=== PATIENT | female | born 1990 | race Two or more races ===

== ENCOUNTER 2019-01-25 14:05 | Inpatient (IN) | payer OTHER ==
[~2019-01-25] VITALS: Ht 157.5 cm; Wt 43.1 kg
[2019-01-25] MEDS ORDERED: Magnesium 1GM/D5W 100ML PREMIX 200 ML IV ONE ×2 (14:17→14:21)
--- NOTE | 2019-01-25 14:18 | NUR ---
DR CAMERON AT BEDSIDE FOR EVAL.
[2019-01-25] MEDS ORDERED: ALBUTEROL FS 2.5 MG/3 ML VIAL.NEB ONE (14:20)
[2019-01-25] MEDS ORDERED: IPRATROPIUM NEB FS 0.5 MG/2.5 ML AMPUL.NEB ONE (14:20)
[2019-01-25] MEDS ORDERED: TERBUTALINE SULFATE 1 MG/ML VIAL ONE (14:21)
--- NOTE | 2019-01-25 14:25 | NUR ---
RT AT BEDSIDE FOR EVAL.
[2019-01-25] MEDS ORDERED: DEXAMETHASONE SOD PHOSPHATE 10 MG/ML VIAL ONE (14:29)
[2019-01-25] MEDS ORDERED: IPRATROPIUM NEB FS 0.5 MG/2.5 ML AMPUL.NEB NEB ONE (14:30)
[2019-01-25] MEDS ORDERED: TERBUTALINE SULFATE 1 MG/ML VIAL SQ ONE (14:30)
[2019-01-25] MEDS ORDERED: DEXAMETHASONE SOD PHOSPHATE 10 MG/ML VIAL IV ONE (14:30)
[2019-01-25] MEDS ORDERED: ALBUTEROL FS 2.5 MG/3 ML VIAL.NEB CONTNEB ONE (14:30)
[2019-01-25] MEDS ORDERED: IV NS 0.9% 500 ML IV ONE (14:30)
[2019-01-25 14:32] LABS: BASOPHILS # (AUTO) 0.1 /CMM (0.0-0.2); BASOPHILS % (AUTO) 1.3 % (0.0-2.0); EOSINOPHILS % (AUTO) 12.9 % (0.0-6.0); HEMATOCRIT 43 % (33-45); HEMOGLOBIN 14.7 g/dL (11.5-14.8); LYMPHOCYTES # (AUTO) 3.2 /CMM (0.8-4.8); LYMPHOCYTES % (AUTO) 29.5 % (20.0-44.0); MEAN CORPUSCULAR HGB CONC 34 g/dl (31.0-36.0); MEAN CORPUSCULAR VOLUME 92 fL (82-100); MONOCYTES # (AUTO) 0.9 /CMM (0.1-1.30); MONOCYTES % (AUTO) 8.2 % (2.0-12.0); NEUTROPHILS # (AUTO) 5.3 /CMM (1.8-8.9); NEUTROPHILS % (AUTO) 48.1 % (43.0-81.0); PLATELET COUNT (AUTO) 291 /CMM (150-450); RED BLOOD CELL COUNT(AUTO) 4.72 MIL/uL (4.0-5.2)
--- NOTE | 2019-01-25 14:32 | NUR ---
RADIOLOGY AT BEDSIDE FOR CHEST XRAY.
[2019-01-25 14:38] LABS: CREATININE 0.5 mg/dL (0.6-1.3); POTASSIUM 3.9 mmol/L (3.5-5.1)
[2019-01-25] MEDS ORDERED: MONT10TA22 PO (14:39)
[2019-01-25] MEDS ORDERED: ALBU6.7H INH (14:39)
[2019-01-25] MEDS ORDERED: FLUT1BLS INH (14:39)
[2019-01-25 16:10] VITALS: BP 104/64
--- NOTE | 2019-01-25 17:38 | NUR ---
REPORT GIVEN TO DARCI FLOOD. PT AWAITING TRANSFER TO FLOOR.
[2019-01-25] MEDS ORDERED: MAGNESIUM HYDROXIDE 30 ML UDC PO PRN (18:00)
[2019-01-25] MEDS ORDERED: ZOLPIDEM TARTRATE 5 MG TABLET PO PRN (18:00)
[2019-01-25] MEDS ORDERED: Z GUARD REMEDY 2 OZ OINT TP PRN (18:00)
[2019-01-25] MEDS ORDERED: ONDANSETRON HCL/PF 4 MG/2 ML VIAL IVP PRN (18:00)
[2019-01-25] MEDS ORDERED: ACETAMINOPHEN 325 MG TABLET PO PRN (18:00)
[2019-01-25] MEDS ORDERED: MAG HYDROX/AL HYDROX/SIMETH 30 ML UDC PO PRN (18:00)
[2019-01-25] MEDS ORDERED: HYDROCODONE/APAP 5/325MG 1 EACH TABLET PO PRN (18:00)
--- NOTE | 2019-01-25 18:10 | NUR ---
FRONT MAN NOTES ADMITTED PATIENT FROM ER REPORT GIVEN BY LAMAR FLOOD. PATIENT ALERT ORIENTED X 3.VITAL SIGNS STABLE. PLACED ON BLOCK OPERATOR. NO ACUTE DISTRESS NOTED. IV ACCESS PATENT AND INTACT, NO REDNESS OR SWELLING NOTED. ORIENTED TO THE ROOM. NEEDS ATTENDED AND ANTICIPATED. SAFETY MEASURES IN PLACE. CALL LIGHT WITHIN REACH. WILL ENDORSE TO NIGHT NURSE FOR CONTINUITY OF CARE AND ADMISSION.
--- NOTE | 2019-01-25 18:11 | NUR ---
UNABLE TO DEPART FROM [facility]
[2019-01-25] MEDS: MONTELUKAST SODIUM (10MG) 10 MG TABLET PO SCH (18:42)
[2019-01-25] MEDS: methylPREDNISolone SOD SUCC 125 MG/2ML VIAL IV SCH (18:42)
[2019-01-25] MEDS ORDERED: AZITHROMYCIN 250 MG TABLET PO ONE (19:00)
--- NOTE | 2019-01-25 19:23 | NUR ---
RN NOTES: RECEIVED AWAKE IN BED, IN SEMI FOWLERS POSITION,A/0X4,ABLE TO MAKE NEEDS KNOWS, VERY FRIENDLY, AMBULATORY, ON TELE MONITOR ST-120-130,ABDOMINAL BREATHING, SLIGHT SOB NOTED, STARTED ON O2 AT 2L/MIN SPO2-92%, CANNULA INTACT RAC GAUGE#20, ORIENTED TO UNIT AND STAFF, ENDORSED BY RN TO GIVE AZITHROMAX 1,000 MG=4 TABS, SHE ALREADY TOOK FROM OMNICEL, ANTIBIOTIC GIVEN AFTER PATIENT FINISH EATING HER DINNER.KEPT ON CLOSE WATCH AND OBSERVED FOR SIGN FOR RESPIRATORY DEPRESSION.
[2019-01-25] MEDS: IPRATROPIUM NEB FS 0.5 MG/2.5 ML AMPUL.NEB NEB SCH ×2 (19:33→23:30)
[2019-01-25] MEDS: ALBUTEROL FS 2.5 MG/0.5 ML VIAL.NEB NEB SCH ×2 (19:33→23:30)
[2019-01-25 20:00] VITALS: BP 93/59
--- NOTE | 2019-01-25 20:00 | NUR ---
RN NOTES RECEIVED PATIENT, ALERT, AWAKE, ORIENTED, REPOSITIONED AND WITH DIMINISHED LUNG SOUND UPON AUSCULTATION, NO SOB NOTED AT THIS TIME, ON 2LPM VIA NC TOLERATING WELL SATING 92% - 95%. SLIGHT LABORED BREATHING NOTED, ALL SAFETY MEASURES IN PLACE, ASPIRATION, IV ACCESS ON HER RIGHT AC G#20 INTACT AND PATENT, SAFETY MEASURES IN PLACE, ASPIRATION PRECAUTION EMPHASIZE, ALL NEEDS ATTENDED, KEEP COMFORTABLE. WILL CONTINUE TO MONITOR ACCORDINGLY.
--- NOTE | 2019-01-25 20:04 | NUR ---
ARASH NOTES: ENDORSED TO FRANK FOR CONTINUITY OF CARE, PATIENT LOOKS MORE BETTER LESS SOB, BED LOW AND LOCKED, CALL LIGHT WITHIN EASY REACH, LANDING PAD ON SIDES. Addendum: 01/25/19 at 2916 by DODIE URIAS RN CORRECTION: REMIGIO NOTES NOT TN NOTES.
--- NOTE | 2019-01-25 21:03 | NUR ---
RN NOTES RECEIVED REPORT FROM REMIGIO STOLL, ALL NEEDS ANTICIPATED, KEEP COMFORTABLE. WILL MONITOR ACCORDINGLY.
[2019-01-26] VITALS: BP 102/68
[2019-01-26] MEDS: ALBUTEROL FS 2.5 MG/0.5 ML VIAL.NEB NEB SCH ×4 (03:39→15:18)
[2019-01-26] MEDS: IPRATROPIUM NEB FS 0.5 MG/2.5 ML AMPUL.NEB NEB SCH ×4 (03:39→15:18)
[2019-01-26 04:00] VITALS: BP 105/70
[2019-01-26 06:35] LABS: BASOPHILS % (AUTO) 0.1 % (0.0-2.0); HEMATOCRIT 41 % (33-45); HEMOGLOBIN 14.1 g/dL (11.5-14.8); LYMPHOCYTES # (AUTO) 0.8 /CMM (0.8-4.8); LYMPHOCYTES % (AUTO) 6.2 % (20.0-44.0); MEAN CORPUSCULAR HGB CONC 35 g/dl (31.0-36.0); MEAN CORPUSCULAR VOLUME 91 fL (82-100); MONOCYTES # (AUTO) 0.3 /CMM (0.1-1.30); MONOCYTES % (AUTO) 2.9 % (2.0-12.0); NEUTROPHILS # (AUTO) 11.1 /CMM (1.8-8.9); NEUTROPHILS % (AUTO) 90.8 % (43.0-81.0); PLATELET COUNT (AUTO) 377 /CMM (150-450); RED BLOOD CELL COUNT(AUTO) 4.49 MIL/uL (4.0-5.2); WHITE BLOOD COUNT (AUTO) 12.2 K/uL (4.3-11.0)
[2019-01-26 06:53] LABS: CALCIUM, SERUM 9.3 mg/dL (8.5-10.1); CREATININE 0.5 mg/dL (0.6-1.3); MAGNESIUM 2.1 mg/dL (1.8-2.4); PHOSPHORUS 3.2 mg/dL (2.5-4.9); POTASSIUM 4.1 mmol/L (3.5-5.1)
--- NOTE | 2019-01-26 07:26 | NUR ---
RN NOTES ALL NEEDS ATTENDED AND MET, ABLE TO REST AND SLEPT WITH LONG INTERVALS, DENIES ANY PAIN AND DISCOMFORT AT THIS TIME.ENDORSED TO AM NURSE FOR CONTINUITY OF CARE.
[2019-01-26] MEDS ORDERED: PANTOPRAZOLE 40 MG TABLET.DR PO SCH (07:30)
[2019-01-26 08:00] VITALS: BP 99/81
--- NOTE | 2019-01-26 08:00 | NUR ---
RN NOTES RECEIVED PATIENT IN THE BED GETTING BREATHING TREATMENT BY RT. PATIENT STABLE, NO ACUTE RESPIRATORY DISTRESS, V/S STABLE. PATIENT AMBULATORY SELF CARE. . IV ACCESS ON RIGHT AC AREA INTACT. CALL LIGHT WITHIN TO REACH. BOYFRIEND NEXT TO THE BED. CALL LIGHT WITHIN TO REACH. CONTINUED MONITORING.
[2019-01-26] MEDS: MONTELUKAST SODIUM (10MG) 10 MG TABLET PO SCH (08:45)
[2019-01-26] MEDS: methylPREDNISolone SOD SUCC 125 MG/2ML VIAL IV SCH ×2 (08:47→13:41)
--- NOTE | 2019-01-26 09:00 | NUR ---
RN NOTES PATIENT EATING BREAKFAST, ADMINISTERED SCHEDULED MEDICATION. REFUSED PAIN AT THIS TIME. PATIENT SELF CARE.
[2019-01-26] MEDS ORDERED: ALBU2.5V13 NEB (12:24)
[2019-01-26] MEDS ORDERED: IPRA0.2S49 NEB (12:24)
[2019-01-26] MEDS ORDERED: PRED20TA PO (12:24)
[2019-01-26] MEDS ORDERED: AZIT250T PO (12:25)
--- NOTE | 2019-01-26 14:14 | NUR ---
Visited pt today. Family at bedside. Pt confirmed her height is 5'2" (62 inches) and reports UBW 120lbs. Per BMI, pt underweight. Pt states that pt mostly eats out because pt does not have a refrigerator at home, per pt and pt is trying to get some weight back by ordering shakes at fast food restaurants and [employer]. Provided diet education on high calories/high protein to pt/family with handouts. Pt verbalized understanding. Labs reviewed, noted A1C still pending. Noted MD ordered to discharge pt today.
--- NOTE | 2019-01-26 15:00 | NUR ---
OLEOMARGARINE MAKER NOTES PATIENT DISCHARGE AT THIS TIME GOING HOME. PATIENT STABLE, V/S STABLE, REFUSED PAIN. MED RECONCILIATION AND DISCHARGE ORDER REVIEWED AND EXPLAINED TO PATIENT. PATIENT VERBALIZED UNDERSTANDING. PRESCRIPTION HANDED TO THE PATIENT.PATIENT WILL FOLLOW PRIMARY MD. PATIENT SIGN PAPERWORK. ESCORTED PATIENT TO THE [facility] FOR SAFETY. PATIENT AP OPERATOR BY BOYFRIEND NAME CLARENCE PHONE #[phone].
[2019-01-26] MEDS ORDERED: AZITHROMYCIN 250 MG TABLET PO SCH (20:00)
== END 2019-01-26 15:45 | disposition home or self-care (01) | DRG 133 ==
LOC: ER 14:05 → MEDSG1 17:30 → MED 18:03 → TELE 18:26 → MED 01-26 08:44
PROVIDERS: ADMIT Nurse Practitioner Acute Care; ATTEND Nurse Practitioner Acute Care
DX: J96.00 Acute respiratory failure, unspecified whether with hypoxia or hypercapnia (principal); J45.901 Unspecified asthma with (acute) exacerbation; F17.200 Nicotine dependence, unspecified, uncomplicated; Z72.89 Other problems related to lifestyle
CPT/HCPCS: 36415; 71045-TC; 80048-TC; 80061-TC; 83735-TC; 84100-TC; 84703-TC; 85025-TC; 87081-TC; 94799-TC; G0378; J1100; J2930; J3105; J3475; J7040

== ENCOUNTER 2019-02-18 01:30 | Emergency (ER) | payer OTHER ==
[~2019-02-18] VITALS: Ht 157.5 cm; Wt 44.0 kg
[~2019-02-18 01:30] MED LIST: ALBU2.5V13 NEB; ALBU6.7H INH; AZIT250T PO; FLUT1BLS INH; IPRA0.2S49 NEB; MONT10TA22 PO; PRED20TA PO
--- NOTE | 2019-02-18 01:35 | NUR ---
BIBSELF FROM HOME. TO ER BED 9. AAOX 4. PRESENTED SOB. GASPING FOR AIR AND PUFFING X 4 HOURS AGO. PT NOTED WITH O2 SAT OF 86% ON RA. PLACED ON O2 VIA NC @ 2LPM. TRIPODING POSTION WITH ACCESSORY MUSCLE USE. AWATING MD ORDRS
[2019-02-18] MEDS ORDERED: DEXAMETHASONE SOD PHOSPHATE 10 MG/ML VIAL ONE (01:38)
[2019-02-18] MEDS ORDERED: ALBUTEROL FS 2.5 MG/3 ML VIAL.NEB ONE ×2 (01:48→01:49)
[2019-02-18] MEDS ORDERED: IPRATROPIUM NEB FS 0.5 MG/2.5 ML AMPUL.NEB ONE (01:49)
--- NOTE | 2019-02-18 01:52 | NUR ---
RT AT BEDSIDE FOR BREATHING TX
[2019-02-18] MEDS ORDERED: ALBUTEROL SULFATE 8 GM HFA.AER.AD NEB ONE (02:00)
[2019-02-18] MEDS ORDERED: ALBUTEROL SULFATE 8 GM HFA.AER.AD IH ONE (02:00)
[2019-02-18] MEDS ORDERED: DEXAMETHASONE SOD PHOSPHATE 10 MG/ML VIAL IM ONE (02:00)
[2019-02-18] MEDS ORDERED: IPRATROPIUM NEB FS 0.5 MG/2.5 ML AMPUL.NEB NEB ONE (02:00)
--- NOTE | 2019-02-18 02:53 | NUR ---
Patient discharged to home in stable condition. Written and verbal after care instructions given. Patient verbalizes understanding of instruction. Pt verbalize breathing better. Pt ambulatory with a steady gait
[2019-02-18 02:54] VITALS: BP 112/71
== END 2019-02-18 02:56 | disposition home or self-care (01) ==
LOC: ER 01:32
DX: J45.909 Unspecified asthma, uncomplicated (principal); F17.200 Nicotine dependence, unspecified, uncomplicated; Z60.2 Problems related to living alone
CPT/HCPCS: 96372; 99283; J1100

== ENCOUNTER 2019-03-03 00:46 | Inpatient (IN) | payer OTHER ==
[~2019-03-03] VITALS: Ht 154.9 cm; Wt 42.2 kg
[2019-03-03] MEDS ORDERED: Magnesium 1GM/D5W 100ML PREMIX 200 ML IV ONE (00:54)
[2019-03-03] MEDS ORDERED: ALBUTEROL FS 2.5 MG/3 ML VIAL.NEB ONE ×2 (00:57→02:08)
[2019-03-03] MEDS ORDERED: Magnesium 1GM/D5W 100ML PREMIX 100 ML IV ONE ×2 (00:59→01:33)
[2019-03-03] MEDS ORDERED: ALBUTEROL FS 2.5 MG/3 ML VIAL.NEB CONTNEB ONE (01:00)
[2019-03-03] MEDS ORDERED: methylPREDNISolone SOD SUCC 125 MG/2ML VIAL ONE (01:00)
[2019-03-03] MEDS ORDERED: methylPREDNISolone SOD SUCC 125 MG/2ML VIAL IV ONE (01:00)
[2019-03-03] MEDS ORDERED: IPRATROPIUM NEB FS 0.5 MG/2.5 ML AMPUL.NEB NEB ONE (01:00)
[2019-03-03 01:30] LABS: BASOPHILS # (AUTO) 0.1 /CMM (0.0-0.2); BASOPHILS % (AUTO) 0.5 % (0.0-2.0); EOSINOPHILS % (AUTO) 11.9 % (0.0-6.0); HEMATOCRIT 46 % (33-45); HEMOGLOBIN 15.4 g/dL (11.5-14.8); LYMPHOCYTES # (AUTO) 2.3 /CMM (0.8-4.8); LYMPHOCYTES % (AUTO) 11.6 % (20.0-44.0); MEAN CORPUSCULAR HGB CONC 33 g/dl (31.0-36.0); MEAN CORPUSCULAR VOLUME 93 fL (82-100); MONOCYTES # (AUTO) 0.9 /CMM (0.1-1.30); MONOCYTES % (AUTO) 4.6 % (2.0-12.0); NEUTROPHILS # (AUTO) 13.8 /CMM (1.8-8.9); NEUTROPHILS % (AUTO) 71.4 % (43.0-81.0); PLATELET COUNT (AUTO) 377 /CMM (150-450); WHITE BLOOD COUNT (AUTO) 19.4 K/uL (4.3-11.0)
[2019-03-03 01:36] LABS: CALCIUM, SERUM 9.1 mg/dL (8.5-10.1); CREATININE 0.8 mg/dL (0.6-1.3); POTASSIUM 4.4 mmol/L (3.5-5.1)
[2019-03-03] MEDS ORDERED: ALBUTEROL FS 2.5 MG/0.5 ML VIAL.NEB ONE (02:09)
[2019-03-03] MEDS ORDERED: LEVALBUTEROL HCL NEB 1.25 MG/0.5 ML VIAL.NEB ONE ×3 (02:18→02:19)
[2019-03-03] MEDS ORDERED: LEVALBUTEROL HCL NEB 1.25 MG/0.5 ML VIAL.NEB NEB PRN ×2 (02:30→04:30)
[2019-03-03] MEDS ORDERED: ALBUTEROL FS 2.5 MG/3 ML VIAL.NEB NEB ONE (02:30)
--- NOTE | 2019-03-03 03:13 | NUR ---
HENRIQUE BED ASSIGNMENT: 117-2
[2019-03-03 04:20] VITALS: BP 112/64
--- NOTE | 2019-03-03 04:20 | NUR ---
HENRIQUE RN ADMITTING NOTES RECEIVED PATIENT VIA GURNEY FROM ER ACCOMPANIED BY ER NURSE. ADMITTED TO THE [facility] UNIT WITH THE DX OF ASTHMA EXACERBATION BY ARIAN GE NP. PATIENT A/OX4 BUT APPEARS TO BE VERY DROWSY. PT ON 2L OXYGEN VIA NC, BREATHING EVEN BUT LABORED WITH SOB NOTED, SATURATION 96%. DENIES ANY PAIN AT THE MOMENT. IV SITE LEFT AC 20G, FLUSHING AND PATENT, SITE C/D/I. SKIN ASSESSMENT DONE AND RECORDED. PATIENT ON TELE MONITOR SINUS TACHY WITH HR 128. HOB ELEVATED. SAFETY MEASURES IN PLACE; BED LOCKED AND IN LOWEST POSITION, SIDE RAILS UP X2, CALL LIGHT WITHIN REACH AND INSTRUCTED PATIENT TO USE CL FOR HELP. WILL ATTEND TO HOSPITALIST ADMITTING ORDERS. WILL CONTINUE TO MONITOR PATIENT CLOSELY.
[2019-03-03 04:29] VITALS: BP 112/64
[2019-03-03] MEDS ORDERED: HYDROCODONE/APAP 5/325MG 1 EACH TABLET PO PRN (04:30)
[2019-03-03] MEDS ORDERED: ACETAMINOPHEN 325 MG TABLET PO PRN (04:30)
[2019-03-03] MEDS ORDERED: MAG HYDROX/AL HYDROX/SIMETH 30 ML UDC PO PRN (04:30)
[2019-03-03] MEDS ORDERED: MORPHINE SULFATE INJ 2 MG/ML DISP.SYRIN IV PRN (04:30)
[2019-03-03] MEDS ORDERED: ZOLPIDEM TARTRATE 5 MG TABLET PO PRN (04:30)
[2019-03-03] MEDS ORDERED: MAGNESIUM HYDROXIDE 30 ML UDC PO PRN (04:30)
[2019-03-03] MEDS ORDERED: IPRATROPIUM NEB FS 0.5 MG/2.5 ML AMPUL.NEB NEB PRN (04:30)
[2019-03-03] MEDS ORDERED: ONDANSETRON HCL/PF 4 MG/2 ML VIAL IVP PRN (04:30)
[2019-03-03] MEDS: IV NS 0.9% 1,000 ML IV PRN ×2 (05:07→22:43)
--- NOTE | 2019-03-03 07:30 | NUR ---
OPENING NOTES PATIENT SLEEPING IN BED, AROUSABLE TO TOUCH. PATIENT A/OX4 BUT APPEARS TO BE VERY DROWSY. PT ON 2L OXYGEN VIA NC, NO SOB NOTED, RR EVEN AND UNLABORED AT THE MOMENT. IV SITE LEFT AC 20G, FLUSHING AND PATENT, SITE C/D/I, IV FLUIDS RUNNING ORDERED, NO INFILTRATION NOTED AT SITE. PATIENT ON TELE MONITOR SINUS TACHY WITH HR 120S. HOB ELEVATED. INSTRUCTED PATIENT TO USE URINE CUP FOR DRUG SCREEN. ALL ADMITTING ORDERS CARRIED OUT. SAFETY MEASURES IN PLACE; BED LOCKED AND IN LOWEST POSITION, SIDE RAILS UP X2, CALL LIGHT WITHIN REACH AND INSTRUCTED PATIENT TO USE CL FOR HELP. ENDORSED TO AM RN FOR JOSE. Addendum: 03/03/19 at 1012 by VALENTINA GARCÍA RN ERROR: FILED ACCIDENTALLY
[2019-03-03 08:00] VITALS: BP 112/67
[2019-03-03] MEDS: methylPREDNISolone SOD SUCC 125 MG/2ML VIAL IV SCH ×3 (08:25→17:17)
--- NOTE | 2019-03-03 10:13 | NUR ---
RN NOTES RECEIVED DEEPLY ASLEEP IN BED, NEEDS TOUCH TO AROUSE BUT ORIENTED X4, ABLE TO RESPOND APPROPRIATELY AND MAKE NEEDS KNOWN. WITH USE OF ACCESSORY MUSCLE ON BREATHING BUT DENIES SOB. ON 2L OXYGEN VIA NASAL CANNULA. SATURATION AT 98%. PATIENT ENCOURAGE TO VERBALIZED FEELING AND CONCERNS. SINUS TACHYCARDIC ON THE MONITOR WITH HR ON THE 120'S. IV ACCESS ON THE LEFT AC G #20, IN PLACE AND PATENT ON FLUSHING, SITE C/D/I, IV FLUIDS: NS RUNNING AT 75 CC/HR. PATIENT INSTRUCTED DEEP BREATHING EXERCISES AND TO COLLECT URINE FOR PENDING LABS. SAFETY MEASURES OBSERVED AND MAINTAINED. BED LOCKED AND IN LOWEST POSITION, SIDE RAILS UP X2, CALL LIGHT WITHIN REACH, WILL CONTINUE TO MONITOR AND ANTICIPATE NEEDS
[2019-03-03] MEDS ORDERED: ALBUTEROL FS 2.5 MG/0.5 ML VIAL.NEB NEB PRN (13:30)
[2019-03-03 16:00] VITALS: BP 115/75
--- NOTE | 2019-03-03 19:20 | NUR ---
MS/RN NOTES PATIENT IN BED, RESTING COMFORTABLY, WATCHING TV AT THIS TIME. NO S/S OF ACUTE DISTRESS NOTED, RESPIRATION EVEN AND UNLABORED. NO SOB NOTED. PATIENT A/O X4, DENIES ANY PAIN OR DISCOMFORT AT THIS TIME. LAC 20 GAUGE NOTED WITH NO S/S OF INFECTION/ INFILTRATION, RUNNING WITH FLUIDS ORDERED. SAFETY MAINTAINED, BED AT THE LOWEST, LOCKED POSITION. WILL CONTINUE TO MONITOR PATIENT PER PLAN OF CARE.
--- NOTE | 2019-03-03 19:23 | NUR ---
RN NOTES ENDORSED FOR CONTINUITY OF CARE. NOT ON ANY FORM OF DISTRESS. NO ACUTE CHANGES WITHIN THE SHIFT. ALL NURSING NEEDS ATTENDED AND MET. SAFETY MEASURES IN PLACE. CALL LIGHT WITHIN REACH.
[2019-03-03 19:56] VITALS: BP 112/73
[2019-03-04] VITALS: BP 112/73
[2019-03-04 04:45] VITALS: BP 93/53
--- NOTE | 2019-03-04 06:51 | NUR ---
MS/RN EXIT NOTES PATIENT IN BED, RESTING COMFORTABLY. NO S/S OF ACUTE DISTRESS NOTED, RESPIRATION EVEN AND UNLABORED. NO SOB NOTED. DENIES ANY PAIN OR DISCOMFORT AT THIS TIME. LAC 20 GAUGE NOTED WITH NO S/S OF INFECTION/ INFILTRATION, RUNNING WITH FLUIDS ORDERED. SAFETY MAINTAINED, BED AT THE LOWEST, LOCKED POSITION. CALL LIGHT WITHIN REACH. ALL NEEDS ATTENDANT. WILL ENDORSE TO AM SHIFT NURSE FOR JOSE.
[2019-03-04 07:14] LABS: BASOPHILS # (AUTO) 0.1 /CMM (0.0-0.2); BASOPHILS % (AUTO) 0.4 % (0.0-2.0); HEMATOCRIT 39 % (33-45); HEMOGLOBIN 12.7 g/dL (11.5-14.8); LYMPHOCYTES # (AUTO) 1.3 /CMM (0.8-4.8); LYMPHOCYTES % (AUTO) 4.5 % (20.0-44.0); MEAN CORPUSCULAR HGB CONC 33 g/dl (31.0-36.0); MEAN CORPUSCULAR VOLUME 93 fL (82-100); MONOCYTES # (AUTO) 0.9 /CMM (0.1-1.30); MONOCYTES % (AUTO) 3.2 % (2.0-12.0); NEUTROPHILS # (AUTO) 26.2 /CMM (1.8-8.9); NEUTROPHILS % (AUTO) 91.9 % (43.0-81.0); PLATELET COUNT (AUTO) 345 /CMM (150-450); RED BLOOD CELL COUNT(AUTO) 4.23 MIL/uL (4.0-5.2); WHITE BLOOD COUNT (AUTO) 28.6 K/uL (4.3-11.0)
[2019-03-04 07:23] LABS: CALCIUM, SERUM 8.8 mg/dL (8.5-10.1); CREATININE 0.5 mg/dL (0.6-1.3); MAGNESIUM 1.9 mg/dL (1.8-2.4); PHOSPHORUS 3.7 mg/dL (2.5-4.9); POTASSIUM 4.3 mmol/L (3.5-5.1)
--- NOTE | 2019-03-04 08:00 | NUR ---
m/s child adolescent psychiatrist: initial assessment received pt in bed awake, a/ox4; ambulatory. on room air. no c/o sob or any discomfort. instructed to call for assistance. will continue to monitor.
[2019-03-04 08:09] LABS: BAND % (MANUAL) 4 % (0.0-5.0)
[2019-03-04 08:10] LABS: LYMPHOCYTES % (MANUAL) 3 % (16-48); MONOCYTES % (MANUAL) 6 % (0-11.0)
[2019-03-04 08:13] LABS: NEUTROPHILS % (MANUAL) 87 (42-76)
[2019-03-04 08:22] VITALS: BP 114/72
[2019-03-04] MEDS: methylPREDNISolone SOD SUCC 125 MG/2ML VIAL IV SCH (08:50)
--- NOTE | 2019-03-04 09:00 | NUR ---
m/s eap counselor: notes family visiting at this time.
[2019-03-04] MEDS ORDERED: METH4TAB17 PO (11:31)
--- NOTE | 2019-03-04 11:55 | NUR ---
m/s pressure supervisor: md visit seen and examined by connor abdi ([facility]) with order to d'c home. all questions and concerns by pt answered by connor. Addendum: 03/04/19 at 1157 by TESS RUIZ LVN all prescriptions medications educated by connor and pt verbalized understanding.
[2019-03-04] MEDS ORDERED: POLY17PO4 PO (11:58)
--- NOTE | 2019-03-04 12:05 | NUR ---
m/s cake mixer: d'c instructions discharged instructions given to pt and reviewed her home medications and prescriptions. pt verbalized understanding. pt wants to go after lunch. family is here to take her home. h/l removed with tip intact.
--- NOTE | 2019-03-04 12:06 | NUR ---
Received consult for malnutrition. Pt with recent admission. RD previously seen pt on 01/26/19, noted "Pt confirmed her height is 5'2" (62 inches) and reports UBW 120lbs." and admission weight was 95lbs. Visited pt today. Boyfriend at bedside during the visit. Pt reports her diet got better since RD last seen due to her living conditions. Per pt, they used to live in a car but they moved to an apartment with a friend. Pt states they are trying to cook more at home and eating more healthy. Admission weight this time is 93lbs and per BMI, pt underweight. Provided diet education reinforcement on high calories/high protein diet to pt/boyfriend. Answered all questions. Pt verbalized understanding. Noted MD order to discharge pt to home today.
--- NOTE | 2019-03-04 12:10 | NUR ---
m/s pilot teacher: notes lunch served. pharmacist at bedside at this time.
--- NOTE | 2019-03-04 13:00 | NUR ---
M/S DEPUTY CHIEF EXECUTIVE: DISCHARGED DISCHARGED HOME ACCOMPANIED BY FRIEND/FAMILY VIA PRIVATE CAR IN STABLE CONDITION WITH ALL D'C PAPERS AND BELONGINGS.
== END 2019-03-04 12:56 | disposition home or self-care (01) | DRG 133 ==
LOC: ER 00:48 → TELE-TD 03:30 → MEDSG1 10:29
PROVIDERS: ADMIT Nurse Practitioner Acute Care; ATTEND Nurse Practitioner Acute Care
DX: J96.01 Acute respiratory failure with hypoxia (principal); J45.902 Unspecified asthma with status asthmaticus; Z59.0 Homelessness; D72.829 Elevated white blood cell count, unspecified; F12.90 Cannabis use, unspecified, uncomplicated; F15.90 Other stimulant use, unspecified, uncomplicated
CPT/HCPCS: 36415; 71045-TC; 80048-TC; 80305; 83735-TC; 84100-TC; 84703-TC; 85025-TC; 87081-TC; 94760-TC; G0378; J2930; J3475; J3490; J7030

== ENCOUNTER 2019-04-13 17:33 | Inpatient (IN) | payer OTHER ==
[~2019-04-13] VITALS: Ht 154.9 cm; Wt 43.1 kg
[~2019-04-13 17:33] MED LIST changes: -AZIT250T PO; -FLUT1BLS INH; +METH4TAB17 PO; +POLY17PO4 PO; -PRED20TA PO
[2019-04-13] MEDS ORDERED: Magnesium 1GM/D5W 100ML PREMIX 200 ML IV ONE (17:37)
[2019-04-13] MEDS ORDERED: methylPREDNISolone SOD SUCC 125 MG/2ML VIAL ONE (17:40)
[2019-04-13] MEDS ORDERED: ALBUTEROL FS 2.5 MG/3 ML VIAL.NEB ONE ×2 (17:41→17:44)
[2019-04-13] MEDS ORDERED: IPRATROPIUM NEB FS 0.5 MG/2.5 ML AMPUL.NEB ONE ×2 (17:41→17:44)
[2019-04-13] MEDS ORDERED: Magnesium 1GM/D5W 100ML PREMIX 100 ML IV ONE ×2 (17:41→17:47)
[2019-04-13] MEDS ORDERED: IPRA3AMP23 IH ×2 (17:46)
[2019-04-13] MEDS ORDERED: Magnesium 1GM/D5W 100ML PREMIX 100 ML IV STA (17:51)
[2019-04-13] MEDS ORDERED: TERBUTALINE SULFATE 1 MG/ML VIAL ONE (17:52)
[2019-04-13 17:57] LABS: BASOPHILS # (AUTO) 0.1 /CMM (0.0-0.2); BASOPHILS % (AUTO) 0.8 % (0.0-2.0); EOSINOPHILS % (AUTO) 7.9 % (0.0-6.0); HEMATOCRIT 43 % (33-45); HEMOGLOBIN 14.5 g/dL (11.5-14.8); LYMPHOCYTES # (AUTO) 3.1 /CMM (0.8-4.8); LYMPHOCYTES % (AUTO) 27.2 % (20.0-44.0); MEAN CORPUSCULAR HGB CONC 34 g/dl (31.0-36.0); MEAN CORPUSCULAR VOLUME 92 fL (82-100); MONOCYTES # (AUTO) 0.9 /CMM (0.1-1.30); MONOCYTES % (AUTO) 8.1 % (2.0-12.0); NEUTROPHILS # (AUTO) 6.3 /CMM (1.8-8.9); PLATELET COUNT (AUTO) 319 /CMM (150-450); RED BLOOD CELL COUNT(AUTO) 4.65 MIL/uL (4.0-5.2); WHITE BLOOD COUNT (AUTO) 11.2 K/uL (4.3-11.0)
[2019-04-13] MEDS ORDERED: ALBUTEROL FS 2.5 MG/3 ML VIAL.NEB NEB ONE (18:00)
[2019-04-13] MEDS ORDERED: methylPREDNISolone SOD SUCC 125 MG/2ML VIAL IV ONE (18:00)
[2019-04-13] MEDS ORDERED: TERBUTALINE SULFATE 1 MG/ML VIAL SQ ONE (18:00)
[2019-04-13] MEDS ORDERED: IPRATROPIUM NEB FS 0.5 MG/2.5 ML AMPUL.NEB NEB ONE (18:00)
[2019-04-13] MEDS ORDERED: IV NS 0.9% 1,000 ML BAG IV ONE ×2 (18:00→19:30)
[2019-04-13 18:06] LABS: CALCIUM, SERUM 9.4 mg/dL (8.5-10.1); CARBON DIOXIDE 26 mmol/L (21-32); CHLORIDE 106 mmol/L (98-107); CREATININE 0.7 mg/dL (0.6-1.3); GLUCOSE 147 mg/dL (74-106); POTASSIUM 3.8 mmol/L (3.5-5.1); SODIUM SERUM 142 mmol/L (136-145); UREA NITROGEN, BLOOD 9 mg/dL (7-18)
[2019-04-13 18:11] LABS: ALANINE AMINOTRANSFERASE 15 U/L (12-78); ALBUMIN 4.2 g/dL (3.4-5.0); ALKALINE PHOSPHATASE 69 U/L (46-116); ASPARTATE AMINOTRANSFERASE 15 U/L (15-37); BILIRUBIN,DIRECT 0.1 mg/dL (0.0-0.2); BILIRUBIN,TOTAL 0.5 mg/dL (0.2-1.0); TOTAL PROTEIN, SERUM 7.5 g/dL (6.4-8.2)
--- NOTE | 2019-04-13 18:16 | NUR ---
Pt awake and alert coming in with shortness of breath, expiratory wheezing on assessment, receiving breathing treatment on assessment via mask. pt states to feel better, remains tachycardic on monitor, appears anxious.
--- NOTE | 2019-04-13 18:40 | NUR ---
CALLED [facility]. NOCTURNIST PHYSICIAN WAS PAGED.
--- NOTE | 2019-04-13 19:10 | NUR ---
Late entry pt ripped IV site from right arm and disconnected herself from the breathing tx and monitoring. Pt stating that felt better. Gown was taken off and her street clothes were on. pt appeared short of breath and using accessory muscles for breathing. Pt was educated on the importance of breathing tx to relieve her symptoms and the need to monitor her O2 level and heart rate which remain elevated. pt agreed to be re-connected to monitor, breathing tx and new iv access started on left AC #20, ivf resumed.
--- NOTE | 2019-04-13 19:11 | NUR ---
CALLED [facility]. INVENTORY SPECIALIST MANAGER WAS PAGED
--- NOTE | 2019-04-13 19:20 | NUR ---
PT NOTED WITH BP OF 70/49 HR 121 O2 SAT 87%. MD MADE AWARE. ORDERED 2L NS BOLUS. PLACED ON 02 VIA NC @1.5L - SATTING @ 92%.
[2019-04-13] MEDS ORDERED: MAGNESIUM HYDROXIDE 30 ML UDC PO PRN (19:30)
[2019-04-13] MEDS ORDERED: LORAZEPAM 1 MG TABLET PO PRN (19:30)
[2019-04-13] MEDS ORDERED: MAG HYDROX/AL HYDROX/SIMETH 30 ML UDC PO PRN (19:30)
[2019-04-13] MEDS ORDERED: ALBUTEROL FS 2.5 MG/0.5 ML VIAL.NEB NEB PRN (19:30)
[2019-04-13] MEDS ORDERED: ONDANSETRON HCL/PF 4 MG/2 ML VIAL IVP PRN (19:30)
[2019-04-13] MEDS ORDERED: Z GUARD REMEDY 2 OZ OINT TP PRN (19:30)
[2019-04-13] MEDS ORDERED: ACETAMINOPHEN 325 MG TABLET PO PRN (19:30)
--- NOTE | 2019-04-13 19:40 | NUR ---
SPOKE TO HOUSE SUP FOR TELE BED
--- NOTE | 2019-04-13 20:06 | NUR ---
SPOKE WITH Jose Daniel BUCKLEY - VENDING MACHINE FILLER, [place]. PT APPROVED FOR INPATIENT
--- NOTE | 2019-04-13 20:06 | NUR ---
PT BED 315-1
--- NOTE | 2019-04-13 20:22 | NUR ---
REPORT GIVEN TO REMIGIO ORELLANA FOR JOSE
--- NOTE | 2019-04-13 21:00 | NUR ---
PT TRANSPORTED TO UNIT ON [facility] WITH RN AND EMT AT BEDSIDE W/ ACLS PROTOCOL OBSERVED. NAD NOTED DURING TRANSPORT. PT AMBULATED TO BED FROM [facility] ON STEADY GAIT W/O ASSIST.
--- NOTE | 2019-04-13 22:00 | NUR ---
received pt from ER ,pt alert,oriented,denies any pain, skin intact , no sob minimal wheezing. spo2 97% room air upon arrival low bp ,tachy 100's. afebrile. regular diet and requested water and crackers only. all needs attended, will continue to monitor, HHN refused , went to sleep.
[2019-04-13 23:32] VITALS: BP 97/64
[2019-04-13] MEDS: methylPREDNISolone SOD SUCC 125 MG/2ML VIAL IV SCH (23:59)
--- NOTE | 2019-04-14 06:30 | NUR ---
slept well overnight, had x2 doses of solumedrol, no acute distress, walking and denies any sob. will continue to monitor.
[2019-04-14] MEDS: methylPREDNISolone SOD SUCC 125 MG/2ML VIAL IV SCH ×3 (06:35→17:36)
--- NOTE | 2019-04-14 07:20 | NUR ---
MS RN OPENING NOTES RECEIVED PATIENT UP AMBULATING IN HALLWAY. NO SOB OBSERVED. ALERT AND ORIENTED X4. DENIES ANY C/O PAIN NOR DISCOMFORT AT THIS TIME. LEFT AC # 20 INTACT AND PATENT, NO S/S OF COMPLICATIONS TO IV ACCESS SITE. REDIRECTED PATIENT BACK INTO THE ROOM.
[2019-04-14 07:30] LABS: BASOPHILS % (AUTO) 0.2 % (0.0-2.0); HEMATOCRIT 41 % (33-45); HEMOGLOBIN 13.5 g/dL (11.5-14.8); LYMPHOCYTES # (AUTO) 0.6 /CMM (0.8-4.8); MEAN CORPUSCULAR HGB CONC 33 g/dl (31.0-36.0); MEAN CORPUSCULAR VOLUME 93 fL (82-100); MONOCYTES # (AUTO) 0.2 /CMM (0.1-1.30); MONOCYTES % (AUTO) 1.4 % (2.0-12.0); NEUTROPHILS # (AUTO) 11.7 /CMM (1.8-8.9); NEUTROPHILS % (AUTO) 93.4 % (43.0-81.0); PLATELET COUNT (AUTO) 290 /CMM (150-450); RED BLOOD CELL COUNT(AUTO) 4.35 MIL/uL (4.0-5.2); WHITE BLOOD COUNT (AUTO) 12.5 K/uL (4.3-11.0)
[2019-04-14 07:46] LABS: CALCIUM, SERUM 8.7 mg/dL (8.5-10.1); CREATININE 0.7 mg/dL (0.6-1.3); MAGNESIUM 1.9 mg/dL (1.8-2.4); POTASSIUM 3.6 mmol/L (3.5-5.1)
--- NOTE | 2019-04-14 08:10 | NUR ---
MS RN NOTES PATIENT WENT INTO THE ELEVATOR AND STATED THE SHE HAS TO MEET HER BOYFRIEND REALLY QUICK AND HE IS DOWNSTAIRS WAITING FOR HER. DESPITE OF EDUCATION AND EXPLANATIONS OF RISKS AND BENEFITS, PATIENT CONTINUES TO PROCEED INTO THE ELEVATOR. PRIMARY NURSE ACCOMPANIED PATIENT INTO THE ELEVATOR, ONCE WE WERE IN THE FRONT LOBBY, PATIENT PROCEEDED TO EXIT OUT OF THE MAIN ENTRANCE AMBULATING HURRIEDLY AND INTO THE PARKING AREA. EXPLAINED TO PATIENT AND EDUCATION PROVIDED WITH REINFORCEMENT RENDERED REGARDING PATIENT'S SAFETY ALONG WITH RISKS AND BENEFITS OF MEDICAL CONDITION AND TO COME BACK UPSTAIRS AND WILL WAIT FOR THE BOYFRIEND INSIDE THE ROOM. PATIENT AGREED AND RETURNED BACK TO UNIT. PATIENT RETURNED TO THE ROOM AND LAID DOWN ON BED. CALL LIGHT WITHIN REACH. FREQUENT VISUAL MONITORING PROVIDED. BED IN LOWEST POSITION.
[2019-04-14 08:12] VITALS: BP 102/62
--- NOTE | 2019-04-14 08:20 | NUR ---
MS RN NOTES DR. LEE SEEN AND EXAMINED PATIENT AND SPOKE TO PATIENT ABOUT STAYING ONE MORE DAY FOR CONTINUATION OF CARE, PATIENT AGREED. DR. LEE STATED THAT PATIENT IS A "BIT TACHYCARDIC." INFORMED MD THAT PATIENT AND I (PRIMARY NURSE) JUST CAME BACK UP FROM DOWNSTAIRS AND THAT PATIENT WAS WAITING FOR BOYFRIEND AND WAS WALKING VERY FAST.
[2019-04-14] MEDS: MONTELUKAST SODIUM (10MG) 10 MG TABLET PO SCH (08:29)
--- NOTE | 2019-04-14 09:15 | NUR ---
MS RN NOTES PATIENT WALKED TOWARDS ELEVATOR AND PRESSED BUTTON, PATIENT STATED SHE HAS TO MEET BOYFRIEND DOWNSTAIRS AND WILL BE QUICK. INFORMED PATIENT, SHE NEEDS TO BE ACCOMPANIED BY STAFF AND TO WAIT. PATIENT ACCOMPANIED BY COMMERCIAL REAL ESTATE SALES MANAGER DOWNSTAIRS TO MEET PATIENTS BF.
--- NOTE | 2019-04-14 09:20 | NUR ---
MS RN NOTES PATIENT RETURNED TO UNIT WITH [facility]
--- NOTE | 2019-04-14 10:15 | NUR ---
MS RN NOTES PATIENT SHOWERED IN SHOWER ROOM THEN RETURNED BACK TO ROOM, RESTING COMFORTABLY IN BED. IN NO APPARENT DISTRESS.
[2019-04-14 16:04] VITALS: BP 90/60
--- NOTE | 2019-04-14 18:34 | NUR ---
MS RN CLOSING NOTES PATIENT RESTING COMFORTABLY IN BED. NO S/S OF RESPIRATORY DISTRESS. SPO2 96% ROOM AIR. DENIES ANY C/O PAIN NOR DISCOMFORT AT THIS TIME. LEFT AC SL # 20 INTACT AND PATENT WITHOUT S/S OF INFILTRATION. BED IN LOWEST POSITION, LOCKED. CALL LIGHT WITHIN REACH. IN NO APPARENT DISTRESS.
--- NOTE | 2019-04-14 19:55 | NUR ---
RN NOTES RECEIVED PATIENT AWAKE, CALM, RESTING COMFORTABLY, SAFETY MEASURES IN PLACE, NO APPARENT DISTRESS NOTED, CALL LIGHT WITHIN REACH, IV ACCESS ON ER LEFT AC G#20 INTACT AND PATENT, ALL NEEDS ATTENDED, DENIES ANY PAIN AND DISCOMFORT. ALL NEEDS ANTICIPATED, WILL CONTINUE TO MONITOR ACCORDINGLY.
[2019-04-14 20:00] VITALS: BP 105/67
[2019-04-15] MEDS: methylPREDNISolone SOD SUCC 125 MG/2ML VIAL IV SCH ×2 (01:01→06:08)
--- NOTE | 2019-04-15 07:27 | NUR ---
RN NOTES ALL NEEDS ATTENDED AND MET, ABLE TO REST AND SLEPT AT INTERVALS, NO COMPLAINTS OF PAIN AT THIS TIME, ENDORSED TO AM NURSE FOR CONTINUITY OF CARE.
--- NOTE | 2019-04-15 08:00 | NUR ---
MS RN OPENING NOTES Received Patient awake and resting in bed. A/O x 4. VS stable with no acute distress. Breathing even and unlabored on room air with no respiratory distress. Denies pain. 20g PIV on LAC clean, dry, intact and flushing well. Safety precautions in place. Bed locked and set to lowest position with side rails x 2 up. All needs rendered at this time. Call light within reach. Boyfriend at bedside. Will continue to monitor.
[2019-04-15 08:13] VITALS: BP 115/66
[2019-04-15] MEDS: MONTELUKAST SODIUM (10MG) 10 MG TABLET PO SCH (08:39)
[2019-04-15] MEDS ORDERED: PRED20TA PO (08:42)
--- NOTE | 2019-04-15 11:23 | NUR ---
MS STRING LASTER NOTES Patient discharged for home at this time. Patient in stable condition. VS stable with no acute distress. Breathing even and unlabored on room air with no respiratory distress. Denies pain. Removed intact 20g PIV on LAC. Patient tolerated well. Medication reconciliation and discharge orders reviewed and explained to Patient. Patient verbalized understanding. All belongings with Patient. Patient will follow up with primary MD in 3-5 days. Escorted Patient the lobby for safety. Patient picked up by Gera ann.
== END 2019-04-15 11:15 | disposition home or self-care (01) | DRG 133 ==
LOC: ER 17:35 → TELE 20:45 → MED 21:12
PROVIDERS: ADMIT Internal Medicine; ATTEND Family Medicine
DX: J96.01 Acute respiratory failure with hypoxia (principal); J45.902 Unspecified asthma with status asthmaticus; D72.829 Elevated white blood cell count, unspecified; R73.9 Hyperglycemia, unspecified; Z79.899 Other long term (current) drug therapy; Z79.51 Long term (current) use of inhaled steroids
CPT/HCPCS: 36415; 71045-TC; 80048-TC; 80076-TC; 83735-TC; 84100-TC; 84484-TC; 84703-TC; 85025-TC; 87081-TC; G0378; J2930; J3105; J3475; J7030

== ENCOUNTER 2019-05-22 22:50 | Inpatient (IN) | payer OTHER ==
[~2019-05-22] VITALS: Ht 160 cm; Wt 46.3 kg
[~2019-05-22 22:50] MED LIST changes: -ALBU2.5V13 NEB; -IPRA0.2S49 NEB; +IPRA3AMP23 IH; -METH4TAB17 PO; -POLY17PO4 PO; +PRED20TA PO
--- NOTE | 2019-05-22 22:50 | NUR ---
PT BIB C/O SOB WITH WHEEZING X2 HRS. REPORTS NEBULIZER MALFUNCTION. PT IS AAOX4, NOT IN RESPIRATORY DISTRESS, HOOKED TO MONITOR, KEPT RESTED AND COMFORTABLE,WILL CONTINUE TO MONITOR.
--- NOTE | 2019-05-22 22:50 | NUR ---
ALIYAH CASE AT BEDSIDE FOR EVAL.
[2019-05-22] MEDS ORDERED: Magnesium 1GM/D5W 100ML PREMIX 200 ML IV ONE ×2 (22:55→22:59)
[2019-05-22] MEDS ORDERED: methylPREDNISolone SOD SUCC 125 MG/2ML VIAL ONE (22:59)
[2019-05-22] MEDS ORDERED: IPRATROPIUM NEB FS 0.5 MG/2.5 ML AMPUL.NEB NEB ONE (23:00)
[2019-05-22] MEDS ORDERED: methylPREDNISolone SOD SUCC 125 MG/2ML VIAL IV ONE (23:00)
[2019-05-22] MEDS ORDERED: ALBUTEROL FS 2.5 MG/3 ML VIAL.NEB CONTNEB ONE (23:00)
[2019-05-22] MEDS ORDERED: ALBUTEROL FS 2.5 MG/3 ML VIAL.NEB ONE (23:00)
[2019-05-22] MEDS ORDERED: IPRATROPIUM NEB FS 0.5 MG/2.5 ML AMPUL.NEB ONE (23:01)
--- NOTE | 2019-05-22 23:05 | NUR ---
RT AT BEDSIDE FOR BREATHING TREATMENT.
--- NOTE | 2019-05-22 23:07 | NUR ---
STRUCTURAL STEEL FITTER AT BEDSIDE FOR XRAY.
[2019-05-23] MEDS ORDERED: ALBUTEROL FS 2.5 MG/0.5 ML VIAL.NEB ONE (00:14)
--- NOTE | 2019-05-23 00:20 | NUR ---
RT NOTE MD LY AWARE OF PT'S HEART RATE OF 128. APPROVES OF ALBUTEROL ADMINISTRATION.
[2019-05-23] MEDS ORDERED: ALBUTEROL FS 2.5 MG/0.5 ML VIAL.NEB NEB ONE (00:30)
[2019-05-23 00:44] LABS: BASOPHILS # (AUTO) 0.2 /CMM (0.0-0.2); BASOPHILS % (AUTO) 0.9 % (0.0-2.0); EOSINOPHILS % (AUTO) 3.4 % (0.0-6.0); HEMATOCRIT 44 % (33-45); HEMOGLOBIN 14.7 g/dL (11.5-14.8); LYMPHOCYTES # (AUTO) 2.4 /CMM (0.8-4.8); LYMPHOCYTES % (AUTO) 14.3 % (20.0-44.0); MEAN CORPUSCULAR HGB CONC 33 g/dl (31.0-36.0); MEAN CORPUSCULAR VOLUME 93 fL (82-100); MONOCYTES # (AUTO) 0.6 /CMM (0.1-1.30); MONOCYTES % (AUTO) 3.7 % (2.0-12.0); NEUTROPHILS # (AUTO) 13.1 /CMM (1.8-8.9); NEUTROPHILS % (AUTO) 77.7 % (43.0-81.0); PLATELET COUNT (AUTO) 421 /CMM (150-450); RED BLOOD CELL COUNT(AUTO) 4.76 MIL/uL (4.0-5.2); WHITE BLOOD COUNT (AUTO) 16.9 K/uL (4.3-11.0)
[2019-05-23 00:52] LABS: CALCIUM, SERUM 8.4 mg/dL (8.5-10.1); CREATININE 0.7 mg/dL (0.6-1.3); POTASSIUM 3.3 mmol/L (3.5-5.1)
[2019-05-23] MEDS ORDERED: TERBUTALINE SULFATE 1 MG/ML VIAL ONE (00:59)
[2019-05-23 01:00] LABS: ALBUMIN 3.4 g/dL (3.4-5.0); BILIRUBIN,TOTAL 0.1 mg/dL (0.2-1.0); TOTAL PROTEIN, SERUM 7.3 g/dL (6.4-8.2)
[2019-05-23] MEDS ORDERED: TERBUTALINE SULFATE 1 MG/ML VIAL SQ ONE (01:00)
--- NOTE | 2019-05-23 02:50 | NUR ---
REPORT GIVEN TO REMIGIO CURTIS FOR JOSE.
[2019-05-23 03:22] VITALS: BP 110/85
--- NOTE | 2019-05-23 03:30 | NUR ---
TD RN NOTES RECEIVED PT FROM ER NURSE VIA LUIS ANTONIO. A/O X 4. ON NASAL CANNULA 2LPM, NO RESPIRATORY DISTRESS NOTED. ON TELE MONITOR SINUS TACH 130. BELONGING LIST CHECKED, BED BATH DONE. HEAD OF BED ELEVATED. SIDE RAILS UP. CALL LIGHT WITHIN REACH. BED ALARM ON. WILL CONTINUE TO MONITOR PT CLOSELY.
[2019-05-23] MEDS ORDERED: MORPHINE SULFATE INJ 2 MG/ML DISP.SYRIN IV PRN (04:00)
[2019-05-23] MEDS ORDERED: ACETAMINOPHEN 325 MG TABLET PO PRN (04:00)
[2019-05-23] MEDS ORDERED: LEVOFLOXACIN 500 MG /D5W 100ML 500 MG in PREMIX 1 EA IV SCH ×2 (04:00→04:18)
[2019-05-23] MEDS ORDERED: ONDANSETRON HCL/PF 4 MG/2 ML VIAL IVP PRN (04:00)
[2019-05-23] MEDS ORDERED: LEVOFLOXACIN 500 MG /D5W 100ML 100 ML IV ONE (04:23)
[2019-05-23] MEDS: LEVOFLOXACIN 500 MG /D5W 100ML 500 MG in PREMIX 1 EA IV SCH (04:24)
[2019-05-23] MEDS: methylPREDNISolone SOD SUCC 40 MG/ML VIAL IV SCH ×3 (04:24→20:16)
--- NOTE | 2019-05-23 05:45 | NUR ---
TD RN NOTES PAGED EPIC FOR SINUS TACH 140. WILL MONITOR PT CLOSELY.
[2019-05-23] MEDS ORDERED: LEVALBUTEROL HCL NEB 1.25 MG/0.5 ML VIAL.NEB NEB SCH (06:00)
[2019-05-23 06:14] VITALS: BP 110/85
--- NOTE | 2019-05-23 07:30 | NUR ---
TD RN AM NOTES RECEIVED PT IN BED, ASLEEP, AROUSES TO NAME AND TOUCH, AOX 4, BOYFRIEND AT BEDSIDE, ON 2 L O2 ON AND OFF, NO SOB, RESPIRATION UNLABORED, SINUS TACH HR 120s-130s, DENIES PAIN OR DISCOMFORT AT THIS TIME, RAC G 20 FLUSHES WELL, SITE CLEAR, BRP, REGULAR DIET, HEAD OF BED ELEVATED. SIDE RAILS UP. CALL LIGHT WITHIN REACH. BED ALARM ON. POC DISCUSSED, VERBALIZED UNDERSTANDING. SAFETY MEASURE IN PLACE. CALL IGHT WITHIN REACH. WILL CONTINUE TO MONITOR PT CLOSELY.
--- NOTE | 2019-05-23 07:31 | NUR ---
TD RN NOTES NO ACUTE CHANGES NOTED DURING THE SHIFT. NO RESPIRATORY DISTRESS NOTED. WILL ENDORSE TO THE AM NURSE FOR CONTINUITY OF CARE.
[2019-05-23 08:00] VITALS: BP 115/81
[2019-05-23] MEDS: IPRATROPIUM NEB FS 0.5 MG/2.5 ML AMPUL.NEB NEB SCH ×3 (08:03→19:57)
[2019-05-23] MEDS: LEVALBUTEROL HCL NEB 1.25 MG/0.5 ML VIAL.NEB NEB SCH ×4 (08:04→19:57)
[2019-05-23] MEDS: MONTELUKAST SODIUM (10MG) 10 MG TABLET PO SCH (08:44)
[2019-05-23] MEDS: FAMOTIDINE/PF INJ 20 MG/2 ML VIAL IV SCH ×2 (08:44→20:16)
--- NOTE | 2019-05-23 09:30 | NUR ---
TD RN NOTES DUE MEDS GIVEN
[2019-05-23] MEDS ORDERED: POTASSIUM CHLORIDE 20 MEQ TAB.PRT.SR PO SCH (10:00)
[2019-05-23 12:00] VITALS: BP 95/67
--- NOTE | 2019-05-23 13:48 | NUR ---
Social service consult requested by Dr. Zavala for homelessness. Pt. is a 28 year old female who was admitted to [facility] for status asthmaticus. SW met with the pt. bedside. Pt's boyfriend Gera was bedside asleep in a chair. Pt. is alert and oriented x 4. Pt. is pleasant and cooperative with SW during the assessment. Pt. states she lives with her family at [address] [place] [address] in [place], however when she comes to [facility] she and her boyfriend stay in his car. SW offered pt. prison placement, however pt. declined. Pt. is willing to accept prison/food/mental health clinic/ health clinic resources. Pt. denies any drug, alcohol and cigarette use. Pt. states she randomly will use marijuana. Pt. has a psychiatric diagnosis of Bipolar Disorder and is currently not taking any medications. Pt. denies suicidal and homicidal ideations and visual/auditory hallucinations at this time. Pt. receives food stamps and General Relief. Pt's boyfriend Gera's contact number is . The following resources were provided to the pt: [facility], [address] [place] [address] ; [employer] [facility] [place], [address] [place] [place] ; [facility] Homeless Resource Directory which includes food stamps, transitional housing, showers and hot meals etc; Mental Health clinics such as [facility] ; [facility] ; Health clinics;[facility] and Alcohol treatment centers such as [facility] [place], ; [facility] Substance Abuse Hotline and [facility] . Homeless Patient Waiver form was placed in pt's chart for pt. to sign upon discharge. No other social service needs are requested at this time. SW is available, if needed.
[2019-05-23 16:00] VITALS: BP 101/66
--- NOTE | 2019-05-23 19:04 | NUR ---
TD RN NOTES PATIENT RECEIVED BY PM SHIFT PT AWAKE, AROUSES TO NAME AND TOUCH, AOX 4, BOYFRIEND AT BEDSIDE, ON 2 L O2 ON AND OFF, NO SOB, RESPIRATION UNLABORED, SINUS TACH HR 110- 120 , DENIES PAIN OR DISCOMFORT AT THIS TIME, RAC G 20 FLUSHES WELL, SITE CLEAR, BRP, REGULAR DIET, HEAD OF BED ELEVATED. SIDE RAILS UP. CALL LIGHT WITHIN REACH. PATIENT IS AMBULATORY. PATIENT STATED SHE IS FEELING MUCH BETTER. VERBALIZED UNDERSTANDING OF CONTINUED CARE . SAFETY MEASURE IN PLACE. CALL LIGHT WITHIN REACH. WILL CONTINUE TO MONITOR PT CLOSELY.
--- NOTE | 2019-05-23 19:57 | NUR ---
TD RN NOTES RECEIVED PT ON BED. A/O X 4. ROOM AIR NO RESPIRATORY DISTRESS NOTED. ON TELE MONITOR SINUS TACH 127. HEAD OF BED ELEVATED. SIDE RAILS UP. CALL LIGHT WITHIN REACH. BED ALARM ON. WILL CONTINUE TO MONITOR PT CLOSELY.
[2019-05-23 20:00] VITALS: BP 110/59
[2019-05-24] VITALS: BP 96/63
[2019-05-24] MEDS: IPRATROPIUM NEB FS 0.5 MG/2.5 ML AMPUL.NEB NEB SCH ×3 (00:30→13:02)
[2019-05-24] MEDS ORDERED: LEVALBUTEROL HCL NEB 1.25 MG/0.5 ML VIAL.NEB ONE (00:42)
[2019-05-24] MEDS: LEVALBUTEROL HCL NEB 1.25 MG/0.5 ML VIAL.NEB NEB SCH (00:44)
[2019-05-24] MEDS: methylPREDNISolone SOD SUCC 40 MG/ML VIAL IV SCH ×2 (04:03→13:00)
[2019-05-24 06:43] LABS: CALCIUM, SERUM 8.9 mg/dL (8.5-10.1); CREATININE 0.6 mg/dL (0.6-1.3); POTASSIUM 4.6 mmol/L (3.5-5.1)
--- NOTE | 2019-05-24 07:25 | NUR ---
TD RN NOTES NO ACUTE CHANGES NOTED DURING THE SHIFT. NO RESPIRATORY DISTRESS NOTED. ENDORSED TO THE AM NURSE FOR CONTINUITY OF CARE.
[2019-05-24] MEDS ORDERED: LEVALBUTEROL HCL NEB 1.25 MG/0.5 ML VIAL.NEB NEB SCH (07:30)
--- NOTE | 2019-05-24 07:30 | NUR ---
RN Note: Pt received sitting in bed, A&Ox4, suspicious, nervous, pressured speech however cooperative with plan of care. Denies discomfort. With productive cough noted. Expiratory wheezing noted throughout. IV HL patent and intact. Oriented to poc and unit protocol. Verbalizes understanding. Boyfriend at bedside. Safety measures in place.
[2019-05-24 08:00] VITALS: BP 104/67
[2019-05-24] MEDS: FAMOTIDINE/PF INJ 20 MG/2 ML VIAL IV SCH (08:22)
[2019-05-24] MEDS: LEVOFLOXACIN 500 MG /D5W 100ML 500 MG in PREMIX 1 EA IV SCH (08:22)
[2019-05-24] MEDS: MONTELUKAST SODIUM (10MG) 10 MG TABLET PO SCH (08:22)
--- NOTE | 2019-05-24 10:45 | NUR ---
RN Note: S/B Dr Zavala. Pt cleared for discharge. SW and CM to see pt for discharge planning.
[2019-05-24] MEDS ORDERED: ALBU6.7H INH (10:46)
[2019-05-24] MEDS ORDERED: MONT10TA22 PO (10:46)
[2019-05-24] MEDS ORDERED: IPRA3AMP23 IH ×2 (10:46)
[2019-05-24] MEDS ORDERED: PRED20TA PO (10:46)
--- NOTE | 2019-05-24 10:53 | NUR ---
AWILDA and rn case management Carli met with pt. and her boyfriend Gera escalante to discuss discharge plan. Pt. states, she will be staying at the following address once she discharges from [facility], [address] in [place]. Pt. was informed by rn case management Carli to call her insurance and change her PCP in the [facility] area since she resides here now. Pt. in the meanwhile will go the one of the health clinics provided to her by AWILDA. Pt. is familiar with [facility] as she was a patient there in the past. Pt. gets her prescriptions at the [facility] on [address] Zavala has been updated with pt's discharge plan. Homeless patient waiver form has been placed in pt. chart for pt. to sign upon discharge. REMIGIO Delgado has been notified.
[2019-05-24] MEDS ORDERED: ALBUTEROL FS 2.5 MG/0.5 ML VIAL.NEB NEB SCH (11:30)
[2019-05-24 12:00] VITALS: BP 101/66
--- NOTE | 2019-05-24 14:45 | NUR ---
RN Note: Pt discharged home in stable condition. IV HL d/c'd, catheter tip intact. Prescription, discharge instructions, exit care provided. Medications electronically sent to pt's pharmacy. Pt verbalized understanding of DC instructions, states "I'm going to get my nebulizer and meds, and find a new doctor from the list the social media campaign manager gave me." Homeless Waiver form signed. Tele box returned to tele desk. Pt ambulated to [facility] with steady gait, no SOB, picked up by boyfriend and went home via private car.
== END 2019-05-24 14:45 | disposition home or self-care (01) | DRG 141 ==
LOC: ER 22:51 → TELE-TD 05-23 02:49
PROVIDERS: ADMIT Family Medicine; ATTEND Family Medicine
DX: J45.901 Unspecified asthma with (acute) exacerbation (principal); D72.829 Elevated white blood cell count, unspecified; E87.6 Hypokalemia; R73.9 Hyperglycemia, unspecified
CPT/HCPCS: 36415; 71045-TC; 80048-TC; 80053-TC; 85025-TC; 94799-TC; A4216; G0378; J1956; J2920; J2930; J3105; J3475; J3490

== ENCOUNTER 2019-06-26 15:03 | Inpatient (IN) | payer OTHER ==
[~2019-06-26] VITALS: Ht 157.5 cm; Wt 44.5 kg
[~2019-06-26 15:03] MED LIST changes: -ALBU6.7H INH; +ALBU6.7H9 INH
[2019-06-26] MEDS ORDERED: IV NS 0.9% 1,000 ML IV ONE (15:11)
[2019-06-26] MEDS ORDERED: Magnesium 1GM/D5W 100ML PREMIX 200 ML IV ONE ×2 (15:11→15:15)
[2019-06-26] MEDS ORDERED: methylPREDNISolone SOD SUCC 125 MG/2ML VIAL ONE (15:14)
[2019-06-26] MEDS ORDERED: ALBUTEROL FS 2.5 MG/3 ML VIAL.NEB ONE (15:16)
[2019-06-26] MEDS ORDERED: IPRATROPIUM NEB FS 0.5 MG/2.5 ML AMPUL.NEB ONE (15:16)
[2019-06-26] MEDS ORDERED: ALBUTEROL FS 2.5 MG/3 ML VIAL.NEB NEB ONE ×2 (15:30→17:00)
[2019-06-26] MEDS ORDERED: methylPREDNISolone SOD SUCC 125 MG/2ML VIAL IV ONE (15:30)
[2019-06-26] MEDS ORDERED: IPRATROPIUM NEB FS 0.5 MG/2.5 ML AMPUL.NEB NEB ONE ×2 (15:30→20:00)
[2019-06-26 15:44] LABS: BASOPHILS # (AUTO) 0.1 /CMM (0.0-0.2); BASOPHILS % (AUTO) 0.9 % (0.0-2.0); EOSINOPHILS % (AUTO) 6.1 % (0.0-6.0); HEMATOCRIT 49 % (33-45); HEMOGLOBIN 16.5 g/dL (11.5-14.8); LYMPHOCYTES # (AUTO) 1.2 /CMM (0.8-4.8); LYMPHOCYTES % (AUTO) 11.5 % (20.0-44.0); MEAN CORPUSCULAR HGB CONC 34 g/dl (31.0-36.0); MEAN CORPUSCULAR VOLUME 92 fL (82-100); MONOCYTES # (AUTO) 1.1 /CMM (0.1-1.30); MONOCYTES % (AUTO) 10.6 % (2.0-12.0); NEUTROPHILS # (AUTO) 7.6 /CMM (1.8-8.9); NEUTROPHILS % (AUTO) 70.9 % (43.0-81.0); PLATELET COUNT (AUTO) 428 /CMM (150-450); RED BLOOD CELL COUNT(AUTO) 5.32 MIL/uL (4.0-5.2); WHITE BLOOD COUNT (AUTO) 10.7 K/uL (4.3-11.0)
--- NOTE | 2019-06-26 15:44 | NUR ---
patient came in to the ER c/o sob x 2-3 days unrelieved w/ asthma meds. ambulatory with steady gait. 02 applied @ 3lpm via NC saturation of 94%. RT at bedside for treatment. Kept comfortable, connected to the monitor and pulse ox. will continue to monitor accordingly.
[2019-06-26 15:48] LABS: ABG BASE EXCESS -4.7 mmol/L; ABG OXYGEN SATURATION 93.2 % (92.0-98.5); ABG PH 7.447 (7.350-7.450); ABG PO2 67.7 mmHg (75.0-100.0); AaDO2 158.8 mmHg; COHb 0.9 % (0.5-1.5); MetHb 0.5 % (0.0-1.5); O2Hb 91.9 % (94.0-97.0); SITE, ABG Right Radial; VENT MODE, BG 4 LPM O2 FLOW VIA HHN TX
[2019-06-26 16:03] LABS: CALCIUM, SERUM 9.9 mg/dL (8.5-10.1); CREATININE 0.6 mg/dL (0.6-1.3)
[2019-06-26] MEDS ORDERED: CEFTRIAXONE 1GM BAG (ER ONLY) 1 GM/50 ML PIGGYBACK IV ONE (17:00)
[2019-06-26] MEDS ORDERED: CEFTRIAXONE 1GM BAG (ER ONLY) 50 ML IV ONE (17:07)
[2019-06-26] MEDS ORDERED: LEVALBUTEROL HCL NEB 1.25 MG/0.5 ML VIAL.NEB NEB ONE (17:30)
[2019-06-26] MEDS ORDERED: IV NS 0.9% 1,000 ML BAG IV ONE (17:30)
--- NOTE | 2019-06-26 18:47 | NUR ---
CALLED NURSING SUP FOR BED
[2019-06-26] MEDS ORDERED: ACETAMINOPHEN 325 MG TABLET PO PRN (19:00)
[2019-06-26] MEDS ORDERED: ONDANSETRON HCL/PF 4 MG/2 ML VIAL IVP PRN (19:00)
[2019-06-26] MEDS ORDERED: ZOLPIDEM TARTRATE 5 MG TABLET PO PRN (19:00)
[2019-06-26] MEDS ORDERED: MAGNESIUM HYDROXIDE 30 ML UDC PO PRN (19:00)
[2019-06-26] MEDS ORDERED: MAG HYDROX/AL HYDROX/SIMETH 30 ML UDC PO PRN (19:00)
[2019-06-26] MEDS ORDERED: HYDROCODONE/APAP 5/325MG 1 EACH TABLET PO PRN (19:00)
[2019-06-26] MEDS ORDERED: Z GUARD REMEDY 2 OZ OINT TP PRN (19:00)
[2019-06-26] MEDS ORDERED: ALBUTEROL FS 2.5 MG/0.5 ML VIAL.NEB NEB ONE (20:00)
[2019-06-26 20:10] VITALS: BP 110/75
--- NOTE | 2019-06-26 20:10 | NUR ---
TIE PRESSER NOTE RECEIVED PT IN STABLE CONDITION A/O X4, CURRENTLY WATCHING TV. NO SIGNS OF DISTRESS. PT NOTED WITH RAPID BREATHING BUT VERBALIZES THAT SHE IS FINE. NO COMPLAINTS OF PAIN OR N/V. IV IN R AC #[address] WITH IVF INFUSING. ALL CURRENT NEEDS ATTENDED TO. BED LOW, LOCKED, UPPER RAILS UP, AND CALL LIGHT WITHIN REACH. WILL CONT TO MONITOR. SKIN ASSESSED, NOTED TO BE INTACT. ALL BELONGING ACCOUNTED AND SIGNED FOR. MD ALSO MADE AWARE OF PT ARRIVAL.
[2019-06-26] MEDS: IV 1/2NS 1000 ML 1,000 ML IV PRN (20:27)
[2019-06-26 22:50] LABS: APPEARANCE,URINE CLEAR (CLEAR); BILIRUBIN,URINE NEGATIVE (NEGATIVE); BLOOD, URINE NEGATIVE Ery/uL (NEGATIVE); COLOR,URINE YELLOW (YELLOW); KETONES,URINE NEGATIVE (NEGATIVE); LEUKOCYTE ESTERASE ,URINE NEGATIVE (NEGATIVE); NITRITE, URINE NEGATIVE (NEGATIVE); PROTEIN,URINE NEGATIVE (NEGATIVE); UGLUCOSE 500 MG/DL mg/dL (NEGATIVE); UROBILINOGEN,URINE 0.2 EU/dL (0.2)
[2019-06-26] MEDS: methylPREDNISolone SOD SUCC 40 MG/ML VIAL IV SCH (23:24)
[2019-06-27] VITALS (7 sets, daily range): BP systolic 102–134; BP diastolic 64–84
[2019-06-27] MEDS: methylPREDNISolone SOD SUCC 40 MG/ML VIAL IV SCH ×4 (05:32→23:48)
--- NOTE | 2019-06-27 06:11 | NUR ---
RESIDENTIAL SALES NOTE PT IN STABLE CONDITION A/O X4, CURRENTLY RESTING IN BED. NO SIGNS OF SOB OR DISTRESS. NO COMPLAINTS OF PAIN OR N/V. TELE MONITOR: SINUS TACH 136. IV IN L HAND #[address] WITH IVF INFUSING. ALL CURRENT NEEDS ATTENDED TO. BED LOW, LOCKED, UPPER RAILS UP, AND CALL LIGHT WITHIN REACH. WILL CONT TO MONITOR AND ENDORSE TO NEXT SHIFT FOR JOSE.
[2019-06-27 06:31] LABS: BASOPHILS % (AUTO) 0.2 % (0.0-2.0); EOSINOPHILS % (AUTO) 0.1 % (0.0-6.0); HEMATOCRIT 38 % (33-45); HEMOGLOBIN 12.9 g/dL (11.5-14.8); LYMPHOCYTES # (AUTO) 0.6 /CMM (0.8-4.8); LYMPHOCYTES % (AUTO) 4.7 % (20.0-44.0); MEAN CORPUSCULAR HGB CONC 34 g/dl (31.0-36.0); MEAN CORPUSCULAR VOLUME 91 fL (82-100); MONOCYTES # (AUTO) 0.2 /CMM (0.1-1.30); MONOCYTES % (AUTO) 1.4 % (2.0-12.0); NEUTROPHILS # (AUTO) 11.5 /CMM (1.8-8.9); NEUTROPHILS % (AUTO) 93.6 % (43.0-81.0); PLATELET COUNT (AUTO) 369 /CMM (150-450); RED BLOOD CELL COUNT(AUTO) 4.21 MIL/uL (4.0-5.2); WHITE BLOOD COUNT (AUTO) 12.2 K/uL (4.3-11.0)
[2019-06-27 06:58] LABS: CALCIUM, SERUM 8.7 mg/dL (8.5-10.1); CREATININE 0.5 mg/dL (0.6-1.3); MAGNESIUM 2.1 mg/dL (1.8-2.4); PHOSPHORUS 3.4 mg/dL (2.5-4.9)
--- NOTE | 2019-06-27 07:12 | NUR ---
MS/RN Patient received. Patient received from crime data specialist. A/O X4, no shortness of breath or wheezing at this time. IV fluids ordered but patient refusing at this time. Denies any pain or discomfort. Safety measurs in place, call light within reach, will continue to monitor and ensure safety.
[2019-06-27] MEDS: PANTOPRAZOLE 40 MG TABLET.DR PO SCH (07:49)
--- NOTE | 2019-06-27 09:02 | NUR ---
MS/RN S/B Dr Fernandes Seen by Dr Fernandes - await pulmonary consult, continue with current treatment plan. Labs ordered for tomorrow morning.
[2019-06-27 10:42] LABS: THYROID STIMULATING HORMONE 0.057 uIU/mL (0.358-3.74)
--- NOTE | 2019-06-27 10:46 | NUR ---
MS/RN Cough Patient complaining of productive cough, producing moderate amount of green colored sputum. Dr Fernandes informed, order given for robitussin DM every four hours prn.
[2019-06-27] MEDS: GUAIFENESIN/D-METHORPHAN HB 5 ML UDC PO PRN ×3 (10:52→23:44)
[2019-06-27] MEDS: IPRATROPIUM NEB FS 0.5 MG/2.5 ML AMPUL.NEB NEB SCH ×4 (12:00→23:21)
[2019-06-27] MEDS: ALBUTEROL HALF STRENGTH 1.25 MG/3 ML VIAL.NEB NEB SCH ×4 (13:00→23:21)
--- NOTE | 2019-06-27 13:48 | NUR ---
MS/RN S/B Dr Sharpe Seen by Dr Sharpe - intensify bronchodilators, continue with steroids, sinus series ordered for tomorrow. Will need to follow up as outpatient for formal allergy evaluation.
--- NOTE | 2019-06-27 17:32 | NUR ---
MS/care navigator Medications administered as ordered.
--- NOTE | 2019-06-27 18:22 | NUR ---
MS/RN End note Patient remains in stable condition, no acute shortness of breath noted, saturation on 2l 96%. Solu-medrol and HHN administered as ordered. Denies any pain or discomfort, all needs and concerns addressed. Call light within reach, will endorse to advanced practice provider.
--- NOTE | 2019-06-27 19:05 | NUR ---
CHANGE OF SHIFT REPORT Patient in bed, awake. Tolerating oxygen at 2LPM, denies SOB. IVF infusing. Instruction to use call light for assistance, verbalized understanding.
[2019-06-28] MEDS: ALBUTEROL HALF STRENGTH 1.25 MG/3 ML VIAL.NEB NEB SCH ×6 (04:22→23:09)
[2019-06-28] MEDS: IPRATROPIUM NEB FS 0.5 MG/2.5 ML AMPUL.NEB NEB SCH ×6 (04:22→23:09)
[2019-06-28] MEDS: methylPREDNISolone SOD SUCC 40 MG/ML VIAL IV SCH ×4 (06:13→23:34)
[2019-06-28] MEDS: IV 1/2NS 1000 ML 1,000 ML IV PRN (06:18)
--- NOTE | 2019-06-28 06:23 | NUR ---
END OF SHIRT REPORT Patient in bed, remains on low flow oxygen at 2LPM via NC, tolerating well. Productive cough improved with PRN Robitussin. IVF infusing. Continue on IV Steroids, nebs per RT. Ambulates independently, denies pain.
[2019-06-28 06:27] LABS: BASOPHILS # (AUTO) 0.1 /CMM (0.0-0.2); BASOPHILS % (AUTO) 0.3 % (0.0-2.0); EOSINOPHILS % (AUTO) 0.1 % (0.0-6.0); HEMATOCRIT 38 % (33-45); HEMOGLOBIN 12.6 g/dL (11.5-14.8); LYMPHOCYTES # (AUTO) 0.8 /CMM (0.8-4.8); LYMPHOCYTES % (AUTO) 4.6 % (20.0-44.0); MEAN CORPUSCULAR HGB CONC 33 g/dl (31.0-36.0); MEAN CORPUSCULAR VOLUME 92 fL (82-100); MONOCYTES # (AUTO) 0.5 /CMM (0.1-1.30); MONOCYTES % (AUTO) 2.7 % (2.0-12.0); NEUTROPHILS # (AUTO) 15.8 /CMM (1.8-8.9); NEUTROPHILS % (AUTO) 92.3 % (43.0-81.0); PLATELET COUNT (AUTO) 376 /CMM (150-450); RED BLOOD CELL COUNT(AUTO) 4.09 MIL/uL (4.0-5.2); WHITE BLOOD COUNT (AUTO) 17.1 K/uL (4.3-11.0)
[2019-06-28 06:51] LABS: CALCIUM, SERUM 8.8 mg/dL (8.5-10.1); CREATININE 0.6 mg/dL (0.6-1.3); MAGNESIUM 1.9 mg/dL (1.8-2.4); POTASSIUM 3.9 mmol/L (3.5-5.1)
--- NOTE | 2019-06-28 07:15 | NUR ---
MS/RN - Assessment Patient is A/O x 4, afebrile, no c/o chest pain, denies shortness of breath, breathing improved, stable on room air. IVF 1/2 NS at 75 ml/hr on the left hand with no signs of infiltration. Skin is intact. Patient is ambulatory with steady gait. Labs reviewed, WBC trending up, on Solumedrol. All needs attended. Will continue with current plan of care.
[2019-06-28] MEDS: PANTOPRAZOLE 40 MG TABLET.DR PO SCH (07:24)
[2019-06-28 08:00] VITALS: BP 105/56
--- NOTE | 2019-06-28 12:00 | NUR ---
MS/RN - Notes Patient feeling better, wants to take a shower, agreed.
--- NOTE | 2019-06-28 12:10 | NUR ---
MS/RN - Technology Intern Dylan Sharpe at bedside, patient in the shower. Per Md, pt clinically improved, continue with current medical management, discharge planning for tomorrow.
--- NOTE | 2019-06-28 15:30 | NUR ---
MS/RN - Notes Patient resting, no s/s of distress, stable on room air, denies pain.
[2019-06-28 16:00] VITALS: BP 112/67
--- NOTE | 2019-06-28 17:47 | NUR ---
MS/RN - End of shift summary Patient in no acute distress, denies shortness of breath, on room air saturating 98%, no c/o pain, afebrile. Continue Duonebs HHN every 4 hours and Solu-medrol 40 mg IVP every 6 hours. Anticipate discharge home tomorrow. Will endorse to night nurse accordingly.
--- NOTE | 2019-06-28 19:10 | NUR ---
MS/RN NOTES RECEIVED PT. SITTING UP IN BED. PT. IS AWAKE, ALERT AND ORIENTED X4. BREATHING EVEN AND UNLABORED ON ROOM AIR. NO SOB, RESPIRATORY DISTRESS OR COMPLAINTS OF PAIN NOTED AT THIS TIME. PT. WITH LEFT HAND 20 GAUGE IV SALINE LOCK PRESENT, PATENT AND INTACT. PT. DOES NOT WANT IV FLUIDS AT THIS TIME. PT. IS DRINKING FLUIDS. PT. WITH VISITOR PRESENT AT BEDSIDE. BED LOCKED AND IN LOWEST POSITION, SIDE RAILS UP X2, WILL CONTINUE TO MONITOR.
[2019-06-28 20:00] VITALS: BP 128/77
[2019-06-29] MEDS: ALBUTEROL HALF STRENGTH 1.25 MG/3 ML VIAL.NEB NEB SCH ×7 (03:10→23:13)
[2019-06-29] MEDS: IPRATROPIUM NEB FS 0.5 MG/2.5 ML AMPUL.NEB NEB SCH ×7 (03:10→23:13)
[2019-06-29] MEDS: methylPREDNISolone SOD SUCC 40 MG/ML VIAL IV SCH ×2 (06:13→21:03)
[2019-06-29 06:53] LABS: BASOPHILS % (AUTO) 0.3 % (0.0-2.0); HEMATOCRIT 40 % (33-45); HEMOGLOBIN 13.1 g/dL (11.5-14.8); LYMPHOCYTES % (AUTO) 7.1 % (20.0-44.0); MEAN CORPUSCULAR HGB CONC 33 g/dl (31.0-36.0); MEAN CORPUSCULAR VOLUME 93 fL (82-100); MONOCYTES # (AUTO) 0.9 /CMM (0.1-1.30); MONOCYTES % (AUTO) 6.8 % (2.0-12.0); NEUTROPHILS # (AUTO) 11.5 /CMM (1.8-8.9); NEUTROPHILS % (AUTO) 85.8 % (43.0-81.0); PLATELET COUNT (AUTO) 435 /CMM (150-450); RED BLOOD CELL COUNT(AUTO) 4.27 MIL/uL (4.0-5.2); WHITE BLOOD COUNT (AUTO) 13.4 K/uL (4.3-11.0)
--- NOTE | 2019-06-29 06:56 | NUR ---
MS/RN NOTES PT. IS LYING IN BED, AWAKE, ALERT AND ORIENTED X4. BREATHING EVEN AND UNLABORED ON ROOM AIR. NO SOB, RESPIRATORY DISTRESS OR COMPLAINTS OF PAIN NOTED AT THIS TIME. PT. WITH LEFT HAND 20 GAUGE IV SALINE LOCK PRESENT, PATENT AND INTACT. ALL PT. NEEDS MET. BED LOCKED AND IN LOWEST POSITION, SIDE RAILS UP X2, WILL ENDORSE TO DAYSHIFT NURSE FOR CONTINUITY OF CARE.
[2019-06-29 07:29] LABS: CALCIUM, SERUM 9.2 mg/dL (8.5-10.1); CREATININE 0.6 mg/dL (0.6-1.3); MAGNESIUM 2.2 mg/dL (1.8-2.4); PHOSPHORUS 3.8 mg/dL (2.5-4.9)
--- NOTE | 2019-06-29 07:40 | NUR ---
MS RN RECEIVED ON BED,AWAKE,ALERT,ORIENTED X4,NOT IN ANY FORM OF DISTRESS, RESPIRATIONS EVEN AND UNLABORED, NO SOB NOTED. PATIENT ON BED, DOING BREATHING TREATMENT,ALL NEEDS ATTENDED.
[2019-06-29 07:53] VITALS: BP 129/72
--- NOTE | 2019-06-29 09:00 | NUR ---
MS FLOOD BREAKFAST SERVED,NO MEDS AT THIS TIME.
[2019-06-29] MEDS: PANTOPRAZOLE 40 MG TABLET.DR PO SCH (09:43)
--- NOTE | 2019-06-29 10:00 | NUR ---
MS RN WAS SEEN BY DR. GEN Martínez/ ORDERS MADE AND CARRIED OUT.
[2019-06-29 16:00] VITALS: BP 122/78
--- NOTE | 2019-06-29 17:18 | NUR ---
MS RN ON BED, NO DISTRESS.
--- NOTE | 2019-06-29 18:30 | NUR ---
ms rn on bed, no distress noted.
--- NOTE | 2019-06-29 19:35 | NUR ---
RN NOTES RECEIVED PATIENT ON BED,AWAKE,ALERT,ORIENTED X4,NOT IN ANY FORM OF DISTRESS, RESPIRATIONS EVEN AND UNLABORED, NO SOB NOTED. DENIES ANY PAIN AND DISCOMFORT, SAFETY MEASURES IN PLACE. WILL CONTINUE TO MONITOR ACCORDINGLY.
[2019-06-29 20:00] VITALS: BP 112/71
[2019-06-29 20:08] VITALS: BP 112/71
[2019-06-30] MEDS: IPRATROPIUM NEB FS 0.5 MG/2.5 ML AMPUL.NEB NEB SCH ×6 (03:19→23:32)
[2019-06-30] MEDS: ALBUTEROL HALF STRENGTH 1.25 MG/3 ML VIAL.NEB NEB SCH ×6 (03:20→23:32)
[2019-06-30 06:19] LABS: BASOPHILS % (AUTO) 0.2 % (0.0-2.0); HEMATOCRIT 37 % (33-45); HEMOGLOBIN 12.6 g/dL (11.5-14.8); LYMPHOCYTES # (AUTO) 1.1 /CMM (0.8-4.8); LYMPHOCYTES % (AUTO) 13.1 % (20.0-44.0); MEAN CORPUSCULAR HGB CONC 34 g/dl (31.0-36.0); MEAN CORPUSCULAR VOLUME 92 fL (82-100); MONOCYTES # (AUTO) 0.6 /CMM (0.1-1.30); NEUTROPHILS # (AUTO) 6.8 /CMM (1.8-8.9); NEUTROPHILS % (AUTO) 79.7 % (43.0-81.0); PLATELET COUNT (AUTO) 401 /CMM (150-450); RED BLOOD CELL COUNT(AUTO) 4.03 MIL/uL (4.0-5.2); WHITE BLOOD COUNT (AUTO) 8.5 K/uL (4.3-11.0)
--- NOTE | 2019-06-30 06:34 | NUR ---
RN NOTES ALL NEEDS ATTENDED AND MET, ABLE TO REST AND SLEPT AT INTERVALS, DENIES ANY PAIN OR DISCOMFORT, CALL LIGHT WITH IN EASY REACH, WILL ENDORSE TO AM NURSE FOR CONTINUITY OF CARE.
[2019-06-30 06:43] LABS: CALCIUM, SERUM 8.3 mg/dL (8.5-10.1); CREATININE 0.5 mg/dL (0.6-1.3); MAGNESIUM 2.1 mg/dL (1.8-2.4); PHOSPHORUS 4.4 mg/dL (2.5-4.9); POTASSIUM 4.2 mmol/L (3.5-5.1)
--- NOTE | 2019-06-30 07:10 | NUR ---
MS RN OPENING NOTES RECEIVED PT IN BED, ASLEEP, EASILY AROUSED. BOYFRIEND AT BEDSIDE. A/O X4. PT TOLERATING RA, WITH NO ACUTE RESPIRATORY DISTRESS NOTED. PT DENIES ANY PAIN OR DISCOMFORT AT THIS TIME. ALSO DENIES, CONCERNS OR QUESTIONS. IVF 1/2 NS AT 75ML/HR TO LEFT HAND G20, INTACT AND FLUID INFUSING WELL. PT KEPT COMFORTABLE. CALL LIGHT KEPT WITHIN REACH. PT'S BED IN LOWEST, LOCKED POSITION WITH SRX3. WILL CONTINUE PLAN OF CARE.
[2019-06-30] MEDS: PANTOPRAZOLE 40 MG TABLET.DR PO SCH (07:59)
[2019-06-30 08:00] VITALS: BP 115/88
[2019-06-30] MEDS: methylPREDNISolone SOD SUCC 40 MG/ML VIAL IV SCH ×4 (08:03→23:29)
--- NOTE | 2019-06-30 09:45 | NUR ---
MS RN NOTES PT'S DISCHARGE POSPONED. PT STILL HAVING WHEEZING. SOLUMEDROL ORDER CHANGED. WILL CONTINUE TO MONITOR.
[2019-06-30 16:00] VITALS: BP 126/80
[2019-06-30] MEDS: IV 1/2NS 1000 ML 1,000 ML IV PRN (17:28)
--- NOTE | 2019-06-30 18:32 | NUR ---
MS RN CLOSING NOTES PT IN BED, AWAKE. A/O X4. PT TOLERATING RA, WITH NO ACUTE RESPIRATORY DISTRESS NOTED. PT DENIES ANY PAIN OR DISCOMFORT AT THIS TIME. IVF 1/2 NS AT 75ML/HR TO LEFT HAND G20, INTACT AND FLUID INFUSING WELL. PT KEPT COMFORTABLE. ALL NEEDS AND CARE ATTENDED AND PROVIDED.CALL LIGHT KEPT WITHIN REACH. PT'S BED IN LOWEST, LOCKED POSITION WITH SRX3. WILL ENDORSE TO INCOMING AIRPORT DRIVER NURSE FOR JOSE.
--- NOTE | 2019-06-30 19:25 | NUR ---
MS RN OPENING NOTES RECEIVED PATIENT FROM MORNING SHIFT, ALERT AND ORIENTED X 4. VERBALLY RESPONSIVE AND ABLE TO FOLLOW DIRECTIONS. BREATHING REGULAR AND UNLABORED ON ROOM AIR. LEFT HAND IV LINE INTACT AND PATENT, INFUSING WELL WITH NO BLEEDING OR S/S OF INFILTRATION/INFECTION NOTED. NO COMPLAINTS OF PAIN/DISCOMFORT REPORTED OF THE TIME. BODY ASSESSMENT DONE, SKIN REMAINED INTACT, CLEAN AND DRY. AMBULATORY WITH BRP. BED LOW AND LOCKED ON SEMI FOWLERS POSITION. CALL LIGHT AND OTHER BELONGINGS IN REACH. WILL CONTINUE TO MONITOR.
[2019-06-30 19:58] VITALS: BP 128/64
[2019-06-30 22:00] VITALS: BP 128/64
[2019-07-01] MEDS: IPRATROPIUM NEB FS 0.5 MG/2.5 ML AMPUL.NEB NEB SCH ×3 (03:31→11:45)
[2019-07-01] MEDS: ALBUTEROL HALF STRENGTH 1.25 MG/3 ML VIAL.NEB NEB SCH ×3 (03:31→11:45)
[2019-07-01] MEDS: IV 1/2NS 1000 ML 1,000 ML IV PRN (05:27)
[2019-07-01] MEDS: methylPREDNISolone SOD SUCC 40 MG/ML VIAL IV SCH ×2 (05:27→12:54)
[2019-07-01 06:31] LABS: BASOPHILS % (AUTO) 0.2 % (0.0-2.0); HEMATOCRIT 38 % (33-45); HEMOGLOBIN 12.8 g/dL (11.5-14.8); LYMPHOCYTES # (AUTO) 1.3 /CMM (0.8-4.8); LYMPHOCYTES % (AUTO) 9.3 % (20.0-44.0); MEAN CORPUSCULAR HGB CONC 34 g/dl (31.0-36.0); MEAN CORPUSCULAR VOLUME 92 fL (82-100); MONOCYTES # (AUTO) 0.9 /CMM (0.1-1.30); MONOCYTES % (AUTO) 6.3 % (2.0-12.0); NEUTROPHILS # (AUTO) 11.6 /CMM (1.8-8.9); NEUTROPHILS % (AUTO) 84.2 % (43.0-81.0); PLATELET COUNT (AUTO) 465 /CMM (150-450); RED BLOOD CELL COUNT(AUTO) 4.13 MIL/uL (4.0-5.2); WHITE BLOOD COUNT (AUTO) 13.8 K/uL (4.3-11.0)
[2019-07-01 06:38] LABS: CALCIUM, SERUM 8.3 mg/dL (8.5-10.1); CREATININE 0.6 mg/dL (0.6-1.3); MAGNESIUM 2.1 mg/dL (1.8-2.4); PHOSPHORUS 3.8 mg/dL (2.5-4.9); POTASSIUM 3.8 mmol/L (3.5-5.1)
--- NOTE | 2019-07-01 06:40 | NUR ---
MS RN CLOSING NOTES PATIENT IN BED ALERT AND ORIENTED X 4. VERBALLY RESPONSIVE AND ABLE TO FOLLOW DIRECTIONS. BREATHING REGULAR AND UNLABORED ON ROOM AIR. STILL NOTED WITH MINIMAL WHEEZING ON BOTH LUNG PAVON. LEFT HAND IV LINE INTACT AND PATENT, INFUSING WELL WITH NO BLEEDING OR S/S OF INFILTRATION/INFECTION OBSERVED. NO COMPLAINTS OF PAIN/DISCOMFORT REPORTED THE WHOLE SHIFT. BED LOW AND LOCKED ON SEMI FOWLERS POSITION. CALL LIGHT AND OTHER BELONGINGS IN REACH. WILL ENDORSE TO MORNING SHIFT FOR JOSE.
--- NOTE | 2019-07-01 07:52 | NUR ---
MS RN NOTES PATIENT RECEIVED RESTING INSIDE ROOM. AWAKE, ALERT AND ORIENTED X 4, NO ACUTE DISTRESS. DENIES ANY PAIN OR DISCOMFORT. NO CHANGES IN LOC NOTED. PATIENT CALM AND RELAXED. BOYFRIEND AT BEDSIDE. WILL CONTINUE TO MONITOR. BED LOCKED AND IN LOW POSITION. BILATERAL UPPER SIDE RAILS UP AND LOCKED. CALL LIGHT WITHIN EASY REACH
[2019-07-01 08:00] VITALS: BP 111/67
[2019-07-01] MEDS: PANTOPRAZOLE 40 MG TABLET.DR PO SCH (08:24)
[2019-07-01 08:27] LABS: LYMPHOCYTES % (MANUAL) 7 % (16-48); MONOCYTES % (MANUAL) 5 % (0-11.0); MYELOCYTES % 3 % (0-0); NEUTROPHILS % (MANUAL) 85 (42-76)
[2019-07-01] MEDS ORDERED: ALBU8.5H8 INH (13:57)
[2019-07-01] MEDS ORDERED: METH4TAB3 PO (13:57)
[2019-07-01] MEDS ORDERED: FLUT1DIS3 INH (13:57)
[2019-07-01] MEDS ORDERED: IPRA0.2S49 NEB (13:57)
[2019-07-01] MEDS ORDERED: GUAI5SYR4 GT (13:57)
[2019-07-01] MEDS ORDERED: MONT10TA22 PO (13:57)
[2019-07-01] MEDS ORDERED: DEXT30SU87 PO (14:00)
--- NOTE | 2019-07-01 15:10 | NUR ---
MS RN NOTES PATIENT WITH DISCHARGE ORDER FROM DR BLEVINS. WITH NEW PRESCRIPTIONS SENT TO PREFERRED PHARMACY. PLACED CALL TO [facility] ([phone]) AND SPOKE WITH DESTINEY PHARMACIST, VERBALIZED THAT THEY RECEIVED PRESCRIPTIONS FOR THE PATIENT. PATIENT MADE AWARE OF DISCHARGE ORDER AND PRESCRIPTIONS SENT TO PREFERRED PHARAMACY AND VERBALIZED UNDERSTANDING.
--- NOTE | 2019-07-01 15:34 | NUR ---
MS RN NOTES PATIENT FOR DISCHARGE HOME TODAY. DISCHARGE INSTRUCTIONS AND EDUCATION PROVIDED TO PATIENT AND VERBALIZED UNDERSTANDING. ALL BELONGINGS COMPLETE ON DISCHARGE, NO REPORT OF MISSING INVENTORY. IV REMOVED, TIP INTACT, PRESSURE DRESSING PLACED ON SITE. NO NEW SKIN BREAKDOWN NOTED ON DISCHARGE. PATIENT AWARE AND VERBALIZED THAT SHE WILL TAKE MEDICATIONS FROM PREFERRED PHARMACY. PATIENT ACCOMPANIED BY LICENSED STAFF TO PARKING LOT. LEFT HOSPITAL PREMISES VIA PRIVATE CAR WITH BOYFRIEND. DR BLEVINS AWARE OF DISCHARGE.
[2019-08-10] MEDS ORDERED: PRED2.5T PO (18:16)
[2019-08-10] MEDS ORDERED: PRED20TA PO (18:16)
== END 2019-07-01 15:30 | disposition home or self-care (01) | DRG 720 ==
LOC: ER 15:06 → TELE 19:41 → MED 06-27 08:11
PROVIDERS: ADMIT Student in an Organized Health Care Education/Training Program; ATTEND Student in an Organized Health Care Education/Training Program
DX: A41.9 Sepsis, unspecified organism (principal); J18.9 Pneumonia, unspecified organism; J45.902 Unspecified asthma with status asthmaticus
CPT/HCPCS: 36415; 36600; 70220-TC; 71045-TC; 80048-TC; 80061-TC; 81000-TC; 83735-TC; 84100-TC; 84439-TC; 84443-TC; 84703-TC; 85025-TC; 87081-TC; G0378; J0696; J2920; J2930; J3475; J3490; J7030

== ENCOUNTER 2019-07-19 23:00 | Emergency (ER) | payer OTHER ==
[~2019-07-19] VITALS: Ht 157.5 cm; Wt 45.4 kg
[~2019-07-19 23:00] MED LIST changes: +ALBU8.5H8 INH; +DEXT30SU87 PO; +FLUT1DIS3 INH; +IPRA0.2S49 NEB; +METH4TAB3 PO; -PRED20TA PO
--- NOTE | 2019-07-19 23:00 | NUR ---
C/O SOB WITH AUDIBLE WHEEZING X2 HRS CARD SORTER. "I COULDN'T FIND MY ALBUTEROL INHBUT I TOOK MY [place]" PT AWAKE, PT ON MONITOR, PT TO BED 12, PT GOWNED, PENDING MD BLANC
--- NOTE | 2019-07-19 23:06 | NUR ---
CALLED RT FOR BREATHING TREATMENT
[2019-07-19] MEDS ORDERED: IV NS 0.9% 1,000 ML IV ONE (23:09)
[2019-07-19] MEDS ORDERED: methylPREDNISolone SOD SUCC 125 MG/2ML VIAL ONE (23:15)
[2019-07-19] MEDS ORDERED: ALBUTEROL FS 2.5 MG/3 ML VIAL.NEB ONE (23:19)
[2019-07-19] MEDS ORDERED: IPRATROPIUM NEB FS 0.5 MG/2.5 ML AMPUL.NEB ONE (23:20)
[2019-07-19 23:22] LABS: BASOPHILS # (AUTO) 0.1 /CMM (0.0-0.2); BASOPHILS % (AUTO) 1.1 % (0.0-2.0); HEMATOCRIT 43 % (33-45); HEMOGLOBIN 14.3 g/dL (11.5-14.8); LYMPHOCYTES # (AUTO) 2.3 /CMM (0.8-4.8); LYMPHOCYTES % (AUTO) 22.2 % (20.0-44.0); MEAN CORPUSCULAR HGB CONC 33 g/dl (31.0-36.0); MEAN CORPUSCULAR VOLUME 93 fL (82-100); MONOCYTES # (AUTO) 1.2 /CMM (0.1-1.30); MONOCYTES % (AUTO) 11.6 % (2.0-12.0); NEUTROPHILS # (AUTO) 5.1 /CMM (1.8-8.9); NEUTROPHILS % (AUTO) 50.1 % (43.0-81.0); PLATELET COUNT (AUTO) 258 /CMM (150-450); RED BLOOD CELL COUNT(AUTO) 4.65 MIL/uL (4.0-5.2); WHITE BLOOD COUNT (AUTO) 10.2 K/uL (4.3-11.0)
[2019-07-19] MEDS ORDERED: methylPREDNISolone SOD SUCC 125 MG/2ML VIAL IV ONE (23:30)
[2019-07-19] MEDS ORDERED: ALBUTEROL FS 2.5 MG/3 ML VIAL.NEB CONTNEB ONE (23:30)
[2019-07-19] MEDS ORDERED: IPRATROPIUM NEB FS 0.5 MG/2.5 ML AMPUL.NEB NEB ONE (23:30)
[2019-07-19 23:32] LABS: CALCIUM, SERUM 9.1 mg/dL (8.5-10.1); CARBON DIOXIDE 29 mmol/L (21-32); CHLORIDE 106 mmol/L (98-107); CREATININE 0.7 mg/dL (0.6-1.3); GLUCOSE 87 mg/dL (74-106); POTASSIUM 3.7 mmol/L (3.5-5.1); SODIUM SERUM 144 mmol/L (136-145); UREA NITROGEN, BLOOD 8 mg/dL (7-18)
[2019-07-19 23:45] LABS: ALANINE AMINOTRANSFERASE 18 U/L (12-78); ALBUMIN 3.8 g/dL (3.4-5.0); ALKALINE PHOSPHATASE 71 U/L (46-116); ASPARTATE AMINOTRANSFERASE 14 U/L (15-37); B-TYPE NATRIURETIC PEPTIDE 35 PG/ML (0-125); BILIRUBIN,TOTAL 0.3 mg/dL (0.2-1.0); TOTAL PROTEIN, SERUM 7.3 g/dL (6.4-8.2)
--- NOTE | 2019-07-20 02:33 | NUR ---
Patient is resting comfortably in bed with eyes closed. Easily aroused. VSS
[2019-07-20] MEDS ORDERED: ALBUTEROL FS 2.5 MG/3 ML VIAL.NEB ONE (02:56)
[2019-07-20] MEDS ORDERED: ALBUTEROL FS 2.5 MG/0.5 ML VIAL.NEB NEB ONE (03:00)
--- NOTE | 2019-07-20 04:00 | NUR ---
Patient is resting comfortably in bed with eyes closed. Easily aroused. VSS
[2019-07-20 05:59] VITALS: BP 118/69
--- NOTE | 2019-07-20 05:59 | NUR ---
Patient discharged to home in stable condition. Written and verbal after care instructions given. Patient verbalizes understanding of instruction.IV removed. Catheter intact and site benign. Pressure and 4x4 applied to site. No bleeding noted. Pt ambulatory with a steady gait
== END 2019-07-20 06:00 | disposition home or self-care (01) ==
LOC: ER 23:07
DX: J45.909 Unspecified asthma, uncomplicated (principal); F17.200 Nicotine dependence, unspecified, uncomplicated; R00.0 Tachycardia, unspecified; Z71.6 Tobacco abuse counseling; Z60.2 Problems related to living alone; Z79.899 Other long term (current) drug therapy
CPT/HCPCS: 36415; 71045; 80048; 80076; 83880; 84484; 84702; 85025; 93005; 94640; 94644; 96374; 99285; 99406; J2930; J7050

== ENCOUNTER 2019-08-08 16:42 | Inpatient (IN) | payer OTHER ==
[2019-08-07 20:50] VITALS: BP 111/67
[~2019-08-08] VITALS: Ht 157.5 cm; Wt 45.8 kg
[2019-08-08] MEDS ORDERED: methylPREDNISolone SOD SUCC 125 MG/2ML VIAL ONE (16:52)
[2019-08-08] MEDS ORDERED: Magnesium 1GM/D5W 100ML PREMIX 200 ML IV ONE (16:53)
[2019-08-08] MEDS ORDERED: IV NS 0.9% 1,000 ML IV ONE (16:53)
[2019-08-08] MEDS ORDERED: Magnesium 1GM/D5W 100ML PREMIX 100 ML IV ONE ×2 (16:53→16:58)
--- NOTE | 2019-08-08 16:55 | NUR ---
C/O SOB FROM ASTHMA EXACERBATION. PATIENT A/OX4, SOB, TACHYPNEA, IV LINE ESTABLISHED ON LEFT AC G20 IV. CHANGED INTO GOWN, ATTACHED TO THE CALIBRATOR BAROMETERS. DR. LUBIN AT BEDSIDE FOR EVAL.
[2019-08-08] MEDS ORDERED: EPINEPHRINE (1:1000) 1 MG/ML AMPUL ONE (16:58)
[2019-08-08] MEDS ORDERED: ALBUTEROL FS 2.5 MG/3 ML VIAL.NEB ONE (16:59)
[2019-08-08] MEDS ORDERED: IPRATROPIUM NEB FS 0.5 MG/2.5 ML AMPUL.NEB ONE (16:59)
[2019-08-08] MEDS ORDERED: ALBUTEROL FS 2.5 MG/3 ML VIAL.NEB NEB ONE (17:00)
[2019-08-08] MEDS ORDERED: methylPREDNISolone SOD SUCC 125 MG/2ML VIAL IV ONE (17:00)
[2019-08-08] MEDS ORDERED: EPINEPHRINE (1:1000) 1 MG/ML AMPUL SUBCUT ONE (17:00)
[2019-08-08] MEDS ORDERED: IPRATROPIUM NEB FS 0.5 MG/2.5 ML AMPUL.NEB NEB ONE (17:00)
[2019-08-08 17:20] LABS: BASOPHILS # (AUTO) 0.1 /CMM (0.0-0.2); BASOPHILS % (AUTO) 0.6 % (0.0-2.0); EOSINOPHILS % (AUTO) 7.9 % (0.0-6.0); HEMATOCRIT 45 % (33-45); HEMOGLOBIN 14.8 g/dL (11.5-14.8); LYMPHOCYTES # (AUTO) 3.5 /CMM (0.8-4.8); LYMPHOCYTES % (AUTO) 18.9 % (20.0-44.0); MEAN CORPUSCULAR HGB CONC 33 g/dl (31.0-36.0); MEAN CORPUSCULAR VOLUME 92 fL (82-100); MONOCYTES # (AUTO) 1.6 /CMM (0.1-1.30); MONOCYTES % (AUTO) 8.9 % (2.0-12.0); NEUTROPHILS # (AUTO) 11.6 /CMM (1.8-8.9); NEUTROPHILS % (AUTO) 63.7 % (43.0-81.0); PLATELET COUNT (AUTO) 537 /CMM (150-450); RED BLOOD CELL COUNT(AUTO) 4.92 MIL/uL (4.0-5.2); WHITE BLOOD COUNT (AUTO) 18.2 K/uL (4.3-11.0)
[2019-08-08] MEDS ORDERED: IPRA3AMP23 IH (17:20)
[2019-08-08] MEDS ORDERED: FLUT1DIS3 IH (17:20)
[2019-08-08] MEDS ORDERED: ALBU8.5H8 IH (17:20)
[2019-08-08] MEDS ORDERED: MONT10TA22 PO (17:20)
[2019-08-08 17:28] LABS: CALCIUM, SERUM 9.1 mg/dL (8.5-10.1); CREATININE 0.6 mg/dL (0.6-1.3); POTASSIUM 3.8 mmol/L (3.5-5.1)
--- NOTE | 2019-08-08 17:30 | NUR ---
MOVE SHEET TURNED TO ADMITTING AND CALLED FOR HENRIQUE BED TO HOUSE SUP.
[2019-08-08 17:34] LABS: ALBUMIN 3.7 g/dL (3.4-5.0); BILIRUBIN,DIRECT 0.1 mg/dL (0.0-0.2); BILIRUBIN,TOTAL 0.4 mg/dL (0.2-1.0); TOTAL PROTEIN, SERUM 7.9 g/dL (6.4-8.2)
--- NOTE | 2019-08-08 17:50 | NUR ---
PATIENT ASSISTED TO RESTROOM, WAS ABLE TO PROVIDE A URINE SAMPLE. PATIENT BREATHING HAS IMPROVED. NOTED WITH MILD LABOR AT THIS TIME.
--- NOTE | 2019-08-08 19:17 | NUR ---
CALLED ALESHA ITS AREN
--- NOTE | 2019-08-08 19:22 | NUR ---
ENDORSED TO QUIRINO VALENTE FOR JOSE
--- NOTE | 2019-08-08 19:22 | NUR ---
PT APPEARS TO BE RESTING COMFORTABLY WITH NO S/S OF PAIN OR DISTRESS.
[2019-08-08 20:00] VITALS: BP 111/67
--- NOTE | 2019-08-08 20:16 | NUR ---
PT'S BP WAS ELEVATED AT 200/99. MD NOTIFIED AND NEW ORDERS GIVEN.
--- NOTE | 2019-08-08 20:22 | NUR ---
MED SURGE BED 102
--- NOTE | 2019-08-08 20:24 | NUR ---
PT APPEARS TO BE SLEEPING SOUNDLY WITH NO S/S OF PAIN. PT'S RESP ARE 26 WITH AN O2 SAT OF 97%.
--- NOTE | 2019-08-08 20:25 | NUR ---
PT APPEARS TO BE SLEEPING SOUNDLY WITH NO S/S OF PAIN. PT'S RESP ARE 26 WITH AN O2 SAT OF 97%.
--- NOTE | 2019-08-08 20:31 | NUR ---
REPORT GIVEN TO REMIGIO SUBRAMANIAN
[2019-08-08 20:50] VITALS: BP 111/67
--- NOTE | 2019-08-08 20:50 | NUR ---
RN OPEN NOTES RECEIVED PATIENT FROM ER VIA [facility]. A/OX4. NO SIGNS OF DISTRESS OR DISCOMFORT. BREATHING EVEN AND UNLABORED. ON 2LPM O2 VIA NC. IV ACCESS IN LAC, PATENT AND INTACT, NO SIGNS OF REDNESS OR INFILTRATION. ORIENTED PATIENT TO UNIT AND ROOM. NO SKIN ISSUES NOTED. BED IN LOW LOCKED POSITION WITH SIDE RAILS X2. CALL LIGHT WITHIN REACH. WILL CONTINUE TO MONITOR.
[2019-08-08] MEDS ORDERED: MAGNESIUM HYDROXIDE 30 ML UDC PO PRN (21:30)
[2019-08-08] MEDS ORDERED: ONDANSETRON HCL/PF 4 MG/2 ML VIAL IVP PRN (21:30)
[2019-08-08] MEDS ORDERED: Z GUARD REMEDY 2 OZ OINT TP PRN (21:30)
[2019-08-08] MEDS ORDERED: HYDROCODONE/APAP 5/325MG 1 EACH TABLET PO PRN (21:30)
[2019-08-08] MEDS ORDERED: ZOLPIDEM TARTRATE 5 MG TABLET PO PRN (21:30)
[2019-08-08] MEDS ORDERED: ALBUTEROL HALF STRENGTH 1.25 MG/3 ML VIAL.NEB NEB PRN (21:30)
[2019-08-08] MEDS ORDERED: IPRATROPIUM NEB FS 0.5 MG/2.5 ML AMPUL.NEB NEB PRN (21:30)
[2019-08-08] MEDS ORDERED: ACETAMINOPHEN 325 MG TABLET PO PRN (21:30)
[2019-08-08] MEDS: IV NS 0.9% 1,000 ML IV PRN (22:51)
[2019-08-08] MEDS ORDERED: LEVOFLOXACIN 500 MG /D5W 100ML 100 ML IV ONE (23:44)
[2019-08-09] MEDS: LEVOFLOXACIN 500 MG /D5W 100ML 500 MG in PREMIX 1 EA IV SCH ×2 (00:46→23:34)
[2019-08-09] MEDS: methylPREDNISolone SOD SUCC 125 MG/2ML VIAL IV SCH ×4 (00:47→21:10)
[2019-08-09 04:00] VITALS: BP 120/83
--- NOTE | 2019-08-09 06:15 | NUR ---
RN CLOSING NOTES PATIENT TRANSFERRED TO MS2 WITH CHARGE NURSE AT BEDSIDE. A/OX4. NO SIGNS OF DISTRESS OR DISCOMFORT. BREATHING EVEN AND UNLABORED. ON 2LPM O2 VIA NC. IV ACCESS IN LAC, PATENT AND INTACT, NO SIGNS OF REDNESS OR INFILTRATION. ALL NEEDS MET. NO SIGNIFICANT CHANGES THROUGH THE NIGHT. ENDORSED TO SHEILA FLOOD FOR JOSE.
[2019-08-09 06:30] VITALS: BP 115/72
--- NOTE | 2019-08-09 06:30 | NUR ---
MS RN OPENING/ CLOSING NOTE RECEIVED PATIENT VIA BED AT 0630. A/O X4. ON OXYGEN 2L/MIN VIA NASAL CANNULA. RESPIRATIONS ARE EVEN AND UNLABORED. NO S/S SOB NOTES. DENIES PAIN AT THIS TIME. IN NO APPARENT DISTRESS. IV ACCESS IN LFA RUNNING NS@75ML/HR. BED IS LOW AND LOCKED, HOB ELEVATED IN SEMI FOWLERS, SIDE RAILS UP X2. CALL LIGHT WITHIN REACH. PATIENT MADE COMFORTABLE. VS STABLE. WILL ENDORSE TO NEXT SHIFT.
--- NOTE | 2019-08-09 07:46 | NUR ---
MS RN NOTES PATIENT RECEIVED RESTING INSIDE ROOM. SLEEPING, EASILY AROUSABLE THROUGH VERBAL AND TACTILE STIMULI. PATIENT A/O X 4. NO ACUTE DISTRESS AT THIS TIME. O2 AT 2L/MIN VIA NC. IVF ONGOING ORDERED. SAFETY PRECAUTIONS IN PLACE. WILL CONTINUE TO MONITOR. BED LOCKED AND IN LOW POSITION. BILATERAL UPPER SIDE RAILS UP AND LOCKED. CALL LIGHT WITHIN EASY REACH
[2019-08-09 08:00] VITALS: BP 115/72
[2019-08-09 08:49] LABS: BASOPHILS % (AUTO) 0.1 % (0.0-2.0); EOSINOPHILS % (AUTO) 0.4 % (0.0-6.0); HEMATOCRIT 40 % (33-45); HEMOGLOBIN 13.3 g/dL (11.5-14.8); LYMPHOCYTES # (AUTO) 0.6 /CMM (0.8-4.8); LYMPHOCYTES % (AUTO) 3.7 % (20.0-44.0); MEAN CORPUSCULAR HGB CONC 33 g/dl (31.0-36.0); MEAN CORPUSCULAR VOLUME 91 fL (82-100); MONOCYTES # (AUTO) 0.1 /CMM (0.1-1.30); MONOCYTES % (AUTO) 0.5 % (2.0-12.0); NEUTROPHILS # (AUTO) 14.9 /CMM (1.8-8.9); NEUTROPHILS % (AUTO) 95.3 % (43.0-81.0); PLATELET COUNT (AUTO) 495 /CMM (150-450); WHITE BLOOD COUNT (AUTO) 15.7 K/uL (4.3-11.0)
[2019-08-09 08:59] LABS: CALCIUM, SERUM 9.1 mg/dL (8.5-10.1); CREATININE 0.6 mg/dL (0.6-1.3); PHOSPHORUS 2.7 mg/dL (2.5-4.9); POTASSIUM 3.8 mmol/L (3.5-5.1)
[2019-08-09] MEDS: IPRATROPIUM NEB FS 0.5 MG/2.5 ML AMPUL.NEB NEB SCH ×4 (14:30→23:45)
[2019-08-09] MEDS: ALBUTEROL HALF STRENGTH 1.25 MG/3 ML VIAL.NEB NEB SCH ×4 (14:30→23:45)
[2019-08-09 16:00] VITALS: BP 108/68
--- NOTE | 2019-08-09 18:54 | NUR ---
MS RN NOTES PATIENT RESTING INSIDE ROOM. A/O X 4. NO ACUTE DISTRESS. DENIES ANY PAIN OR DISCOMFORT. PATIENT KEPT CLEAN, DRY AND COMFORTABLE. WILL ENDORSE TO INCOMING SHIFT FOR JOSE. BED LOCKED AND IN LOW POSITION. BILATERAL UPPER SIDE RAILS UP AND LOCKED. CALL LIGHT WITHIN EASY REACH
--- NOTE | 2019-08-09 19:27 | NUR ---
MS RN RECEIVE PT IN BED, A/O X 4, WATCHING TV. NO SOB, STABLE AND NOT IN DISTRESS, SAFETY MEASURES AT ALL TIMES. WILL CONTINUE TO MONITOR.
[2019-08-09 20:00] VITALS: BP 103/61
--- NOTE | 2019-08-09 20:52 | NUR ---
Met with patient at bedside. States she currently living in her car with her boyfriend Gera. She is hoping that she will get a place to stay at the end of this month through local [facility] family housing program. She is ambulatory and independent with adl's. We will refer to social work lecturer for list of homeless resources that is available. Addendum: 08/09/19 at 2052 by CHIQUITA WHITE RN Amended: Links added.
[2019-08-09] MEDS: IV NS 0.9% 1,000 ML IV PRN (21:20)
[2019-08-10] MEDS: IPRATROPIUM NEB FS 0.5 MG/2.5 ML AMPUL.NEB NEB SCH ×4 (03:45→17:06)
[2019-08-10] MEDS: ALBUTEROL HALF STRENGTH 1.25 MG/3 ML VIAL.NEB NEB SCH ×4 (03:45→17:07)
[2019-08-10] MEDS: methylPREDNISolone SOD SUCC 125 MG/2ML VIAL IV SCH ×2 (05:28→12:05)
--- NOTE | 2019-08-10 05:34 | NUR ---
MS RN PT IRRITABLE, CURSING THAT HER I.V P RFA 20 IS BROKEN, UPON ASSESSMENT IV IS INTACT AND NOT INFILTRATED. EDUCATION PROVIDED. PT MAKING UP STORIES THAT I HURT HER SO MUCH. TOLD PT IF SHE WANTED ME TO INSERT ANOTHER IV PERIPHERAL. PT AGREED. ADILIA AT BEDSIDE. Addendum: 08/10/19 at 0600 by MELL AYOUB RN CORRECTION: LOCATION WAS LEFT ANTECUBITAL 20 G NOT RFA 20 G
--- NOTE | 2019-08-10 05:51 | NUR ---
MS RN RFA 20 G REMOVED PER PT REQUEST. INSERTED NEW PERIPHERAL LINE AT R WRIST 22 G PT TOLERATED PROCEDURE WELL WITH GOOD BLOOD RETURN Addendum: 08/10/19 at 0553 by MELL AYOUB RN PT CALM AT THIS TIME Addendum: 08/10/19 at 0559 by MELL AYOUB RN CORRECTION: LAC 20 G WAS REMOVED NOT RFA 20 G Addendum: 08/10/19 at 0601 by MELL AYOUB RN LEFT WRIST 22 G WAS INSERTED NOT R WRIST 22 MISTAKEN LOCATION
--- NOTE | 2019-08-10 05:54 | NUR ---
MS RN PT REFUSED AM BLOOD DRAW LABS AT THIS DESPITE EXPLAINING RISKS AND BENEFITS PT REFUSED. WILL ENDORSE
--- NOTE | 2019-08-10 06:30 | NUR ---
MS RN PT ASLEEP AND EASILY AWAKEN, NO S/S OF DISTRESS, NO SOB, TOLERATING ROOM AIR. CALM AND NO C/O PAIN. NEEDS ATTENDED AND ANTICIPATED, KEPT CLEAN, DY AND COMFORTABLE. SAFETY MEASURES AT ALL TIMES. WILL ENDORSE NEXT SHIFT POC
--- NOTE | 2019-08-10 07:41 | NUR ---
RN OPENING NOTES Patient remains on 2L nasal cannula, no sob noted, patient denies pain at this time. L wrist 20 gauge with 75 ml per hour. Bed at the lowest setting, call light within reach, side rails up x2.
[2019-08-10 08:00] VITALS: BP 102/65
[2019-08-10 12:04] LABS: CALCIUM, SERUM 8.8 mg/dL (8.5-10.1); CREATININE 0.6 mg/dL (0.6-1.3); PHOSPHORUS 3.7 mg/dL (2.5-4.9)
[2019-08-10 12:30] LABS: BASOPHILS # (AUTO) 0.1 /CMM (0.0-0.2); BASOPHILS % (AUTO) 0.3 % (0.0-2.0); HEMATOCRIT 36 % (33-45); HEMOGLOBIN 11.9 g/dL (11.5-14.8); LYMPHOCYTES # (AUTO) 0.5 /CMM (0.8-4.8); LYMPHOCYTES % (AUTO) 1.9 % (20.0-44.0); MEAN CORPUSCULAR HGB CONC 33 g/dl (31.0-36.0); MEAN CORPUSCULAR VOLUME 92 fL (82-100); MONOCYTES # (AUTO) 0.4 /CMM (0.1-1.30); MONOCYTES % (AUTO) 1.4 % (2.0-12.0); NEUTROPHILS # (AUTO) 25.3 /CMM (1.8-8.9); NEUTROPHILS % (AUTO) 96.4 % (43.0-81.0); PLATELET COUNT (AUTO) 435 /CMM (150-450); RED BLOOD CELL COUNT(AUTO) 3.94 MIL/uL (4.0-5.2); WHITE BLOOD COUNT (AUTO) 26.2 K/uL (4.3-11.0)
[2019-08-10 16:00] VITALS: BP 115/80
[2019-08-10] MEDS ORDERED: PRED2.5T PO (18:16)
[2019-08-10] MEDS ORDERED: PRED20TA PO (18:16)
--- NOTE | 2019-08-10 18:54 | NUR ---
CHIEF CONCIERGE NOTES Patient discharged at this time. Patient given all the paper work and prescription at this time. IV line removed. Patient has no further questions about discharge. No photos needed.
== END 2019-08-10 20:13 | disposition home or self-care (01) | DRG 133 ==
LOC: ER 16:45 → TELE-TD 20:42 → MEDSG1 21:37 → MEDSG2 08-09 06:24
PROVIDERS: ADMIT Nurse Practitioner Acute Care; ATTEND Hospitalist
DX: J96.01 Acute respiratory failure with hypoxia (principal); J45.901 Unspecified asthma with (acute) exacerbation; Z91.14 Patient's other noncompliance with medication regimen; D72.829 Elevated white blood cell count, unspecified; F12.11 Cannabis abuse, in remission; F17.210 Nicotine dependence, cigarettes, uncomplicated; Z71.6 Tobacco abuse counseling; R82.6 Abnormal urine levels of substances chiefly nonmedicinal as to source; J20.8 Acute bronchitis due to other specified organisms
CPT/HCPCS: 36415; 70220-TC; 71045-TC; 80048-TC; 80076-TC; 80305; 83605-TC; 83735-TC; 84100-TC; 84703-TC; 85025-TC; 87040-TC; 87081-TC; A4216; G0378; J0171; J1956; J2930; J3475; J7030

== ENCOUNTER 2019-12-11 23:06 | Inpatient (IN) | payer OTHER ==
[~2019-12-11] VITALS: Ht 157.5 cm; Wt 44.0 kg
[~2019-12-11 23:06] MED LIST changes: -ALBU6.7H9 INH; +ALBU8.5H8 IH; -ALBU8.5H8 INH; -DEXT30SU87 PO; +FLUT1DIS3 IH; -FLUT1DIS3 INH; -IPRA0.2S49 NEB; -METH4TAB3 PO; +PRED2.5T PO; +PRED20TA PO
--- NOTE | 2019-12-11 23:25 | NUR ---
RT UPPER ARM "BUG" BITE, SITE RED, WARM TO TOUCH, WITH ABCESS ON AC AREA. PT AAOX4, -SOB, NAD NOTED, VSS, PENDING MD BLANC
[2019-12-11] MEDS ORDERED: VANCOMYCIN 1 GM in IV D5W 250 ML IV ONE (23:30)
[2019-12-11] MEDS ORDERED: VANCOMYCIN 1 GM VIAL ONE (23:36)
[2019-12-11 23:38] LABS: BASOPHILS # (AUTO) 0.1 /CMM (0.0-0.2); BASOPHILS % (AUTO) 1.1 % (0.0-2.0); EOSINOPHILS % (AUTO) 10.4 % (0.0-6.0); HEMATOCRIT 41 % (33-45); HEMOGLOBIN 13.7 g/dL (11.5-14.8); LYMPHOCYTES # (AUTO) 2.3 /CMM (0.8-4.8); LYMPHOCYTES % (AUTO) 26.8 % (20.0-44.0); MEAN CORPUSCULAR HGB CONC 34 g/dl (31.0-36.0); MEAN CORPUSCULAR VOLUME 91 fL (82-100); MONOCYTES # (AUTO) 0.9 /CMM (0.1-1.30); NEUTROPHILS # (AUTO) 4.4 /CMM (1.8-8.9); NEUTROPHILS % (AUTO) 51.7 % (43.0-81.0); PLATELET COUNT (AUTO) 396 /CMM (150-450); RED BLOOD CELL COUNT(AUTO) 4.46 MIL/uL (4.0-5.2); WHITE BLOOD COUNT (AUTO) 8.5 K/uL (4.3-11.0)
[2019-12-11 23:47] LABS: CALCIUM, SERUM 9.1 mg/dL (8.5-10.1); CREATININE 0.8 mg/dL (0.6-1.3); POTASSIUM 4.2 mmol/L (3.5-5.1)
--- NOTE | 2019-12-12 00:17 | NUR ---
ER TALKING TO ACACIA KOENIG REGARDING PT ADMISSION.
[2019-12-12] MEDS ORDERED: IV 1/2NS 1000 ML 1,000 ML IV PRN (00:50)
[2019-12-12] MEDS ORDERED: MAGNESIUM HYDROXIDE 30 ML UDC PO PRN (01:00)
[2019-12-12] MEDS ORDERED: ACETAMINOPHEN 325 MG TABLET PO PRN (01:00)
[2019-12-12] MEDS ORDERED: MAG HYDROX/AL HYDROX/SIMETH 30 ML UDC PO PRN (01:00)
[2019-12-12] MEDS ORDERED: ZOLPIDEM TARTRATE 5 MG TABLET PO PRN (01:00)
--- NOTE | 2019-12-12 01:19 | NUR ---
M/S 321-2
--- NOTE | 2019-12-12 01:31 | NUR ---
REPORT GIVEN TO REMIGIO WAY FOR JOSE PT WILL BE TRANSPORTED TO 3RD FLOOR
--- NOTE | 2019-12-12 01:46 | NUR ---
MS RN NOTES PATIENT ARRIVED ON FLOOR AT 0146 BY WHEELCHAIR. PT AMBULATED TO BED, ALERT AND ORIENTED X 4. BREATHING EVEN AND UNLABORED ON ROOM AIR. SHOWS NO SIGNS OF ACUTE RESPIRATORY DISTRESS, NO ACUTE PAIN. IV ON L AC 20G RUNNING 1/2 NS AT 75ML/HR. SHOWS NO SIGNS OF INFILTRATION NO REDNESS. BELONGINGS CHECKLIST AND SKIN ASSESSMENT COMPLETED. SAFETY PRECAUTIONS IN PLACE. ORIENTED PT TO ROOM AND UNITS. BED LOWEST POSITION, LOCKED, AND CALL LIGHT KEPT WITHIN REACH. WILL CONTINUE TO MONITOR.
[2019-12-12 01:47] VITALS: BP 95/57
[2019-12-12 01:50] VITALS: BP 95/57
--- NOTE | 2019-12-12 01:52 | NUR ---
PT TRANSPORTED TO 3RD FLOOR
[2019-12-12] MEDS: HYDROCODONE/APAP 5/325MG 1 EACH TABLET PO PRN ×2 (02:30→11:44)
--- NOTE | 2019-12-12 02:30 | NUR ---
MS RN NOTES PATIENT COMPLAINING OF PAIN 02/06. GIVEN NORCO PRN AT 0230. WILL CONTINUE TO MONITOR.
[2019-12-12] MEDS: ONDANSETRON HCL/PF 4 MG/2 ML VIAL IVP PRN ×2 (03:50→11:43)
--- NOTE | 2019-12-12 03:50 | NUR ---
MS RN NOTES PATIENT HAD 1 EPISODE OF EMESIS. GIVEN ZOFRAN PRN AT 0350. WILL CONTINUE TO MONITOR.
--- NOTE | 2019-12-12 06:51 | NUR ---
MS RN NOTES PATIENT IN BED, ASLEEP, ALERT AND ORIENTED X 4. BREATHING EVEN AND UNLABORED ON ROOM AIR. SHOWS NO SIGNS OF ACUTE RESPIRATORY DISTRESS, NO ACUTE PAIN. IV ON L AC 20G RUNNING 1/2 NS AT 75ML/HR. SHOWS NO SIGNS OF INFILTRATION NO REDNESS. ALL DUE MEDICATIONS GIVEN. SAFETY PRECAUTIONS IN PLACE. BED LOWEST POSITION, LOCKED, AND CALL LIGHT KEPT WITHIN REACH. WILL ENDORSE TO ONCOMING NURSE.
[2019-12-12] MEDS ORDERED: FEE PK DOSING 1 MIN EA MC ONE (07:17)
--- NOTE | 2019-12-12 07:30 | NUR ---
RN MS NOTES PT IN BED, ASLEEP, EASY TO AROUSE, ALERT AND ORIENTED, NO COMPLAINT OF PAIN AT THIS TIME, BREATHING PATTERN NORMAL, CALL LIGHT WITHIN REACH, IV FLUIDS INFUSING WELL, KEPT MASON TENDER RESTORATION LABOR BED.
[2019-12-12] MEDS ORDERED: VANCOMYCIN 0.75 GM in IV D5W 250 ML IV SCH (08:00)
[2019-12-12 08:25] VITALS: BP 131/68
--- NOTE | 2019-12-12 13:14 | NUR ---
RN MS NOTES PT IN BED, RESTING, PAIN MEDS GIVEN FOR PAIN MANAGEMENT, IV FLUIDS INFUSING WELL, ASSISTED WITH NEEDS, SHOWERED THIS MORNING.
--- NOTE | 2019-12-12 15:25 | NUR ---
RN MS NOTES PT AWAKE, ALERT AND ORIENTED, NO COMPLAINT OF PAIN AT THIS TIME, NOT IN DISTRESS, PT AMBULATES WITH STEADY GAIT TO THE BATHROOM, NOTED PT TALKING ON THE PHONE, THEN DRESSED UP, GATHERED HER BELONGINGS AND STATED THAT SHE WOULD LIKE TO LEAVE THE HOSPITAL, EXPLAINED RISKS OF LEAVING AGAINST MEDICAL ADVICE, STILL REFUSED TO STAY AND SAID THAT SHE WOULD LIKE TO LEAVE, PATIENT SIGNED AMA FORM, LEFT WITH ALL BELONGINGS.
--- NOTE | 2019-12-12 15:25 | NUR ---
RN MS NOTES REMINDED PT TO FOLLOW UP WITH HER PRIMARY CARE PHYSICIAN AND TO RETURN TO E.R. IN CASE OF EMERGENCY, VERBALIZED UNDERSTANDING, DRESSING APPLIED TO RIGHT ARM CELLULITIS.
--- NOTE | 2019-12-12 15:51 | NUR ---
RN MS NOTES DR. BHATT INFORMED THAT PT LEFT AGAINST MEDICAL ADVICE.
== END 2019-12-12 15:25 | disposition left against medical advice (07) | DRG 383 ==
LOC: ER 23:09 → MED 12-12 01:30
PROVIDERS: ADMIT Internal Medicine; ATTEND Internal Medicine
DX: L03.113 Cellulitis of right upper limb (principal); F19.90 Other psychoactive substance use, unspecified, uncomplicated; J45.909 Unspecified asthma, uncomplicated; S40.861A Insect bite (nonvenomous) of right upper arm, initial encounter; W57.XXXA Bitten or stung by nonvenomous insect and other nonvenomous arthropods, initial encounter; Z79.51 Long term (current) use of inhaled steroids; L02.413 Cutaneous abscess of right upper limb; Z72.0 Tobacco use; Z91.14 Patient's other noncompliance with medication regimen
CPT/HCPCS: 36415; 80048-TC; 83605-TC; 84703-TC; 85025-TC; 87040-TC; 87081-TC; G0378; J2405; J3370; J3490; J7060

== ENCOUNTER 2020-04-11 18:45 | Emergency (ER) | payer OTHER ==
[~2020-04-11] VITALS: Ht 157.5 cm; Wt 43.1 kg
[~2020-04-11 18:45] MED LIST changes: -PRED2.5T PO; -PRED20TA PO
[2020-04-11] MEDS ORDERED: methylPREDNISolone SOD SUCC 125 MG/2ML VIAL ONE (19:09)
--- NOTE | 2020-04-11 19:10 | NUR ---
PT BIBSELF C/O SOB AND COUGH. PT STATES SHE WAS UNABLE TO REFILL PRESCRIPTION FOR ALBUTEROL INHALER. NOTED TACHYCARDIA AND TACHYPNEA, MD AWARE. PT AAOX4. AMBULATORY WITH STEADY GAIT. SKIN WARM AND INTACT. NO ACUTE DISTRESS NOTED AT THIS TIME. PLACED ON CONTINUOUS WIRER HELPER AND PULSE OX, WILL CONTINUE TO MONITOR
[2020-04-11] MEDS ORDERED: ALBUTEROL FS 2.5 MG/3 ML VIAL.NEB ONE (19:18)
[2020-04-11] MEDS: IV NS 0.9% 500 ML BAG IV ONE (19:25)
--- NOTE | 2020-04-11 19:25 | NUR ---
IV INITIATED LAC 20G. LABS DRAWN FROM SITE. HIDE HANDLER AT BEDSIDE FOR COLLECTION. IV INTACT AND PATENT, PLACED ON SALINE LOCK.
[2020-04-11] MEDS: methylPREDNISolone SOD SUCC 125 MG/2ML VIAL IV ONE (19:27)
--- NOTE | 2020-04-11 19:28 | NUR ---
RT AT BEDSIDE FOR BREATHING TREATMENT
[2020-04-11] MEDS ORDERED: ALBUTEROL FS 2.5 MG/3 ML VIAL.NEB NEB ONE (19:30)
[2020-04-11 19:38] LABS: BASOPHILS # (AUTO) 0.1 /CMM (0.0-0.2); BASOPHILS % (AUTO) 0.8 % (0.0-2.0); EOSINOPHILS % (AUTO) 7.1 % (0.0-6.0); HEMATOCRIT 45 % (33-45); HEMOGLOBIN 14.8 g/dL (11.5-14.8); LYMPHOCYTES # (AUTO) 2.3 /CMM (0.8-4.8); LYMPHOCYTES % (AUTO) 16.4 % (20.0-44.0); MEAN CORPUSCULAR HGB CONC 33 g/dl (31.0-36.0); MEAN CORPUSCULAR VOLUME 93 fL (82-100); MONOCYTES # (AUTO) 1.1 /CMM (0.1-1.30); MONOCYTES % (AUTO) 8.2 % (2.0-12.0); NEUTROPHILS # (AUTO) 9.4 /CMM (1.8-8.9); NEUTROPHILS % (AUTO) 67.5 % (43.0-81.0); PLATELET COUNT (AUTO) 418 /CMM (150-450); RED BLOOD CELL COUNT(AUTO) 4.85 MIL/uL (4.0-5.2); WHITE BLOOD COUNT (AUTO) 13.9 K/uL (4.3-11.0)
[2020-04-11 20:01] LABS: CALCIUM, SERUM 8.7 mg/dL (8.5-10.1); CARBON DIOXIDE 29 mmol/L (21-32); CHLORIDE 102 mmol/L (98-107); CREATININE 0.8 mg/dL (0.6-1.3); GLUCOSE 88 mg/dL (74-106); POTASSIUM 3.6 mmol/L (3.5-5.1); SODIUM SERUM 142 mmol/L (136-145); UREA NITROGEN, BLOOD 11 mg/dL (7-18)
--- NOTE | 2020-04-11 20:41 | NUR ---
PT STATES SHE IS FEELING MUCH BETTER. NOTED TACHYCARDIA, AWARE. PER DR. DE LA FUENTE, PT MEDICALLY CLEARED FOR DISCHARGE AT THIS TIME. Patient discharged to home in stable condition. Written and verbal after care instructions given. Patient verbalizes understanding of instruction.IV removed. Catheter intact and site benign. Pressure and 4x4 applied to site. No bleeding noted.Pt ambulatory with a steady gait
[2020-04-11 20:45] VITALS: BP 117/96
== END 2020-04-11 20:45 | disposition home or self-care (01) ==
LOC: ER 18:49
DX: J45.909 Unspecified asthma, uncomplicated (principal); F17.200 Nicotine dependence, unspecified, uncomplicated; Z60.2 Problems related to living alone; Z79.899 Other long term (current) drug therapy
CPT/HCPCS: 36415; 80048; 84484; 85025; 94644; 96374; 99285; J2930

== ENCOUNTER 2020-04-24 06:07 | Emergency (ER) | payer OTHER ==
[~2020-04-24] VITALS: Ht 157.5 cm; Wt 45.4 kg
--- NOTE | 2020-04-24 06:15 | NUR ---
PT AAOX4. BIBSELF C/O SOB X2 HOURS AGO. PT STATED SHE HAS HX OF ASTHMA. DID NOT HAVE HER INHALER. PT PLACED IN BED 7 ON MONITOR AND PULSE OX. UPON ASSESSMENT WHEEZING HEARD. NO ACUTE DISTRESS NOTED.
[2020-04-24] MEDS ORDERED: IPRATROPIUM NEB FS 0.5 MG/2.5 ML AMPUL.NEB ONE (06:31)
[2020-04-24] MEDS ORDERED: ALBUTEROL FS 2.5 MG/3 ML VIAL.NEB ONE (06:31)
[2020-04-24] MEDS ORDERED: predniSONE 20 MG TABLET ONE (06:32)
--- NOTE | 2020-04-24 06:32 | NUR ---
Verónica plunkett in [facility] - 04/24/20 at 0635 by VANDANA RT AT BEDSIDE
[2020-04-24] MEDS: predniSONE 20 MG TABLET PO ONE (06:34)
--- NOTE | 2020-04-24 06:34 | NUR ---
RT AT BEDSIDE
[2020-04-24] MEDS: IPRATROPIUM NEB FS 0.5 MG/2.5 ML AMPUL.NEB NEB ONE (06:35)
[2020-04-24] MEDS: ALBUTEROL FS 2.5 MG/3 ML VIAL.NEB NEB ONE (06:35)
--- NOTE | 2020-04-24 07:01 | NUR ---
Patient discharged to home in stable condition. Written and verbal after care instructions given. Patient verbalizes understanding of instruction and RX. Pt breathing even and unlabored. vss. Ambulated with steady gait. vss.
[2020-04-24 07:02] VITALS: BP 121/71
== END 2020-04-24 07:18 | disposition home or self-care (01) ==
LOC: ER 06:07
DX: J45.909 Unspecified asthma, uncomplicated (principal); F17.200 Nicotine dependence, unspecified, uncomplicated; Z60.2 Problems related to living alone; Z79.899 Other long term (current) drug therapy
CPT/HCPCS: 94644; 99285; J7512

== ENCOUNTER 2020-04-28 05:20 | Emergency (ER) | payer OTHER ==
[~2020-04-28] VITALS: Ht 157.5 cm; Wt 45.4 kg
--- NOTE | 2020-04-28 05:37 | NUR ---
PT BIBS C/O SOB AND WHEEZING X1 DAY TO ER BED 6 MD AT BEDSIDE
[2020-04-28] MEDS ORDERED: predniSONE 10 MG TABLET ONE (05:51)
[2020-04-28] MEDS ORDERED: predniSONE 20 MG TABLET ONE (05:51)
[2020-04-28] MEDS ORDERED: ALBUTEROL FS 2.5 MG/3 ML VIAL.NEB ONE (05:51)
--- NOTE | 2020-04-28 05:55 | NUR ---
RT AT BEDSIDE FOR BREATHING TRX
[2020-04-28] MEDS ORDERED: predniSONE 50 MG TABLET PO ONE (06:00)
[2020-04-28] MEDS ORDERED: IPRATROPIUM NEB FS 0.5 MG/2.5 ML AMPUL.NEB NEB ONE (06:00)
[2020-04-28] MEDS ORDERED: ALBUTEROL FS 2.5 MG/3 ML VIAL.NEB NEB ONE (06:00)
[2020-04-28 07:06] VITALS: BP 117/75
--- NOTE | 2020-04-28 07:06 | NUR ---
Patient discharged to home in stable condition. Written and verbal after care instructions given. Patient verbalizes understanding of instruction.
== END 2020-04-28 07:18 | disposition home or self-care (01) ==
LOC: ER 05:21
DX: J45.909 Unspecified asthma, uncomplicated (principal); F17.200 Nicotine dependence, unspecified, uncomplicated; Z60.2 Problems related to living alone; Z79.899 Other long term (current) drug therapy
CPT/HCPCS: 94640 ×2; 99285; J7512 ×2

== ENCOUNTER 2020-05-20 06:11 | Emergency (ER) | payer OTHER ==
[~2020-05-20] VITALS: Ht 157.5 cm; Wt 45.4 kg
--- NOTE | 2020-05-20 06:22 | NUR ---
PT BIBSELF. C/O SOB WITH WHEEZING X2 WEEKS, WORSE TODAY. PT SAT 90% RA. PT WAS PLACED ON 2L NC, NOW SAT 93%. MD AT BEDSIDE FOR EVAL. AWAITING MD FOR EVAL AND ORDERS. RT CALLED. WILL CONTINUE TO MONITOR.
[2020-05-20] MEDS ORDERED: ALBUTEROL FS 2.5 MG/3 ML VIAL.NEB ONE ×2 (06:25→07:45)
[2020-05-20] MEDS ORDERED: IPRATROPIUM NEB FS 0.5 MG/2.5 ML AMPUL.NEB ONE (06:25)
[2020-05-20] MEDS ORDERED: methylPREDNISolone SOD SUCC 125 MG/2ML VIAL ONE (06:27)
[2020-05-20] MEDS: IPRATROPIUM NEB FS 0.5 MG/2.5 ML AMPUL.NEB NEB ONE (06:31)
[2020-05-20] MEDS: ALBUTEROL FS 2.5 MG/3 ML VIAL.NEB NEB ONE ×2 (06:31→07:50)
--- NOTE | 2020-05-20 06:32 | NUR ---
RT AT BEDSIDE FOR BREATHING TREATMENT
--- NOTE | 2020-05-20 06:39 | NUR ---
LINE ESTABLISHED RAC 20G, BLOOD DRAWN AND SENT TO LAB.
[2020-05-20] MEDS: methylPREDNISolone SOD SUCC 125 MG/2ML VIAL IV ONE (06:40)
--- NOTE | 2020-05-20 06:40 | NUR ---
EVGENYID SWABBED, SENT TO LAB.
--- NOTE | 2020-05-20 06:44 | NUR ---
ASKED PT TO PROVIDE URINE SAMPLE, PT UNABLE TO AT THE MOMENT.
--- NOTE | 2020-05-20 06:51 | NUR ---
RADIOLOGY AT BEDSIDE
[2020-05-20 06:57] LABS: BASOPHILS # (AUTO) 0.2 /CMM (0.0-0.2); BASOPHILS % (AUTO) 2.5 % (0.0-2.0); EOSINOPHILS % (AUTO) 18.3 % (0.0-6.0); HEMATOCRIT 45 % (33-45); HEMOGLOBIN 14.7 g/dL (11.5-14.8); LYMPHOCYTES # (AUTO) 2.5 /CMM (0.8-4.8); MEAN CORPUSCULAR HGB CONC 33 g/dl (31.0-36.0); MEAN CORPUSCULAR VOLUME 93 fL (82-100); MONOCYTES # (AUTO) 0.7 /CMM (0.1-1.30); MONOCYTES % (AUTO) 9.5 % (2.0-12.0); NEUTROPHILS # (AUTO) 2.9 /CMM (1.8-8.9); NEUTROPHILS % (AUTO) 37.7 % (43.0-81.0); PLATELET COUNT (AUTO) 474 /CMM (150-450); RED BLOOD CELL COUNT(AUTO) 4.79 MIL/uL (4.0-5.2); WHITE BLOOD COUNT (AUTO) 7.8 K/uL (4.3-11.0)
[2020-05-20 07:01] LABS: CALCIUM, SERUM 9.1 mg/dL (8.5-10.1); CREATININE 0.7 mg/dL (0.6-1.3)
--- NOTE | 2020-05-20 07:09 | NUR ---
PT PROVIDED URINE SAMPLE. SENT TO LAB
--- NOTE | 2020-05-20 07:34 | NUR ---
COVID NEG PER LAB
[2020-05-20 07:40] LABS: ABG BASE EXCESS -2.9 mmol/L; ABG OXYGEN SATURATION 92.7 % (92.0-98.5); ABG PH 7.399 (7.350-7.450); ABG PO2 65.7 mmHg (75.0-100.0); AaDO2 42.1 mmHg; COHb 0.7 % (0.5-1.5); MetHb 0.4 % (0.0-1.5); O2Hb 91.7 % (94.0-97.0); SITE, ABG Left Brachial; VENT MODE, BG Room Air
--- NOTE | 2020-05-20 08:42 | NUR ---
Patient does not wish to proceed with medical care recommended by Dr. Colón. Patient given information related to possible complications, up to and including , which could occur as a result of leaving the hospital at this time. Patient verbalizes understanding of risks involved due to leaving against medical advice. Patient has signed AMA form. IV removed. Catheter intact and site benign. Pressure and 4x4 applied to site. No bleeding noted.
[2020-05-20 08:43] VITALS: BP 112/70
== END 2020-05-20 08:44 | disposition left against medical advice (07) ==
LOC: ER 06:15
DX: J45.902 Unspecified asthma with status asthmaticus (principal); R09.02 Hypoxemia; Z20.828 Contact with and (suspected) exposure to other viral communicable diseases; R06.03 Acute respiratory distress; F17.200 Nicotine dependence, unspecified, uncomplicated
CPT/HCPCS: 36415; 36600 ×2; 71045; 80048; 82803; 84703; 85025; 87426; 94640 ×2; 96374; 99285; C9803; J2930

== ENCOUNTER 2020-07-29 16:37 | Emergency (ER) | payer OTHER ==
[~2020-07-29] VITALS: Ht 157.5 cm; Wt 45.4 kg
--- NOTE | 2020-07-29 16:47 | NUR ---
CAME IN FOR ASTHMA EXACERBATION, 88% ROOM AIR, TACHYPNEIC, TO ER BED 10, HOOKED TO COPYING MACHINE REPAIRER, BP CUFF AND POX. NOTED TRIPODING POSITION. PLACED ON NON-REBREATHER MASK AT 15LPM, O2 SAT UP TO 99%, CHANGED TO HOSP GOWN, PATIENT AAO x 4, CAM SAMPSON AT BEDSIDE
[2020-07-29] MEDS ORDERED: methylPREDNISolone SOD SUCC 125 MG/2ML VIAL ONE (16:51)
[2020-07-29] MEDS ORDERED: methylPREDNISolone SOD SUCC 125 MG/2ML VIAL IV ONE (17:00)
[2020-07-29] MEDS ORDERED: IPRATROPIUM NEB FS 0.5 MG/2.5 ML AMPUL.NEB NEB ONE (17:00)
[2020-07-29] MEDS ORDERED: ALBUTEROL FS 2.5 MG/3 ML VIAL.NEB CONTNEB ONE (17:00)
[2020-07-29] MEDS ORDERED: IV NS 0.9% 500 ML BAG IV ONE (17:00)
[2020-07-29] MEDS ORDERED: ALBUTEROL FS 2.5 MG/3 ML VIAL.NEB ONE (17:08)
[2020-07-29] MEDS ORDERED: IPRATROPIUM NEB FS 0.5 MG/2.5 ML AMPUL.NEB ONE (17:08)
--- NOTE | 2020-07-29 17:10 | NUR ---
RT AT BEDSIDE FOR BREATHING TX
--- NOTE | 2020-07-29 17:24 | NUR ---
RAPID COVID SWAB DONE AND SENT TO LAB
--- NOTE | 2020-07-29 17:25 | NUR ---
REFUSED RAPID INFLUENZA SWAB, CAM SAMPSON MADE AWARE
[2020-07-29 18:26] LABS: CALCIUM, SERUM 8.9 mg/dL (8.5-10.1); CARBON DIOXIDE 29 mmol/L (21-32); CHLORIDE 101 mmol/L (98-107); CREATININE 0.7 mg/dL (0.6-1.3); GLUCOSE 128 mg/dL (74-106); POTASSIUM 3.7 mmol/L (3.5-5.1); SODIUM SERUM 139 mmol/L (136-145); UREA NITROGEN, BLOOD 12 mg/dL (7-18)
--- NOTE | 2020-07-29 19:17 | NUR ---
ENDORSEMENT GIVEN TO CHERELLE FLOOD FOR JOSE
[2020-07-29 19:20] LABS: BASOPHILS # (AUTO) 0.2 /CMM (0.0-0.2); BASOPHILS % (AUTO) 1.3 % (0.0-2.0); EOSINOPHILS % (AUTO) 6.4 % (0.0-6.0); HEMATOCRIT 42 % (33-45); HEMOGLOBIN 13.9 g/dL (11.5-14.8); LYMPHOCYTES # (AUTO) 1.8 /CMM (0.8-4.8); LYMPHOCYTES % (AUTO) 13.7 % (20.0-44.0); MEAN CORPUSCULAR HGB CONC 33 g/dl (31.0-36.0); MEAN CORPUSCULAR VOLUME 93 fL (82-100); MONOCYTES # (AUTO) 0.5 /CMM (0.1-1.30); MONOCYTES % (AUTO) 3.7 % (2.0-12.0); NEUTROPHILS # (AUTO) 10.1 /CMM (1.8-8.9); NEUTROPHILS % (AUTO) 74.9 % (43.0-81.0); PLATELET COUNT (AUTO) 386 /CMM (150-450); RED BLOOD CELL COUNT(AUTO) 4.54 MIL/uL (4.0-5.2); WHITE BLOOD COUNT (AUTO) 13.5 K/uL (4.3-11.0)
--- NOTE | 2020-07-29 19:40 | NUR ---
tech at bedside for ekg
--- NOTE | 2020-07-29 19:49 | NUR ---
Patient discharged to home in stable condition. Written and verbal after care instructions given. Patient verbalizes understanding of instruction.
--- NOTE | 2020-07-29 19:49 | NUR ---
IV removed. Catheter intact and site benign. Pressure and 4x4 applied to site. No bleeding noted.
[2020-07-29 19:50] VITALS: BP 104/68
== END 2020-07-29 19:50 | disposition home or self-care (01) ==
LOC: ER 16:42
DX: J45.901 Unspecified asthma with (acute) exacerbation (principal); R00.0 Tachycardia, unspecified; D72.829 Elevated white blood cell count, unspecified; R06.03 Acute respiratory distress; Z20.828 Contact with and (suspected) exposure to other viral communicable diseases
CPT/HCPCS: 36415; 71045; 80048; 84484; 84702; 85025; 87426; 94644; 96361; 96374; 99285; C9803; J2930; J7040

== ENCOUNTER 2020-08-04 21:30 | Emergency (ER) | payer OTHER ==
[~2020-08-04] VITALS: Ht 157.5 cm; Wt 45.4 kg
--- NOTE | 2020-08-04 21:33 | NUR ---
Note undone in EDM - 08/04/20 at 2256 by ONELIA PT BIBSELF C/O OF SOBX1 DAY. PT TACHYPNIC AND STRUGGLING TO CATCH HER BREATH. PT STATES SHE TOOK HER MEDICATIONS BUT "THEY WERE NOT EFFECTIVE". PT ON 15L NRB. PT APPEARS ANXIOUS AND IRRITABLE. WHEEZING HEARD IN ALL LOBES IN INSPIRATION AND EXPIRATION. PT SKIN WARM AND INTACT. IV ON LEFT AC 20G.
--- NOTE | 2020-08-04 21:33 | NUR ---
PT BIBSELF C/O OF SOBX1 DAY. PT TACHYPNIC AND STRUGGLING TO CATCH HER BREATH. PT STATES SHE TOOK HER MEDICATIONS BUT "THEY WERE NOT EFFECTIVE". PT ON 15L NRB. PT APPEARS ANXIOUS AND IRRITABLE. WHEEZING HEARD IN ALL LOBES IN INSPIRATION AND EXPIRATION. PT TRIPODING. PT SKIN WARM AND INTACT. IV ON LEFT AC 20G. PT ATTACHED TO MONITOR AND POX. PT GIVEN BLANKET WITH CALL LIGHT WITHIN REACH. WILL CONTINUE TO MONITOR.
--- NOTE | 2020-08-04 21:40 | NUR ---
XRAY AT BEDSIDE
[2020-08-04] MEDS ORDERED: methylPREDNISolone SOD SUCC 125 MG/2ML VIAL ONE (21:54)
[2020-08-04] MEDS ORDERED: methylPREDNISolone SOD SUCC 125 MG/2ML VIAL IV ONE (22:00)
[2020-08-04] MEDS ORDERED: IPRATROPIUM NEB FS 0.5 MG/2.5 ML AMPUL.NEB NEB ONE (22:00)
[2020-08-04] MEDS ORDERED: IV NS 0.9% 1,000 ML BAG IV ONE (22:00)
[2020-08-04] MEDS ORDERED: ALBUTEROL FS 2.5 MG/3 ML VIAL.NEB NEB ONE (22:00)
[2020-08-04] MEDS ORDERED: IPRATROPIUM NEB FS 0.5 MG/2.5 ML AMPUL.NEB ONE (22:34)
[2020-08-04] MEDS ORDERED: ALBUTEROL FS 2.5 MG/3 ML VIAL.NEB ONE (22:34)
--- NOTE | 2020-08-04 22:40 | NUR ---
RT AT BEDSIDE
[2020-08-04 23:51] VITALS: BP 121/89
--- NOTE | 2020-08-04 23:51 | NUR ---
Patient discharged to home in stable condition. Written and verbal after care instructions given. Patient verbalizes understanding of instruction.IV removed. Catheter intact and site benign. Pressure and 4x4 applied to site. No bleeding noted.Pt ambulatory with a steady gait
== END 2020-08-04 23:57 | disposition home or self-care (01) ==
LOC: ER 21:32
DX: J45.901 Unspecified asthma with (acute) exacerbation (principal); R00.0 Tachycardia, unspecified; Z60.2 Problems related to living alone; Z79.899 Other long term (current) drug therapy
CPT/HCPCS: 71045; 94644; 96361; 96374; 99285; J2930; J7030

== ENCOUNTER 2020-08-09 08:23 | Emergency (ER) | payer OTHER ==
[~2020-08-09] VITALS: Ht 157.5 cm; Wt 54.4 kg
[2020-08-09 08:31] VITALS: BP 125/68
[2020-08-09] MEDS ORDERED: ALBUTEROL FS 2.5 MG/3 ML VIAL.NEB ONE ×2 (08:35→09:10)
[2020-08-09] MEDS ORDERED: IPRATROPIUM NEB FS 0.5 MG/2.5 ML AMPUL.NEB ONE ×2 (08:36→09:10)
[2020-08-09] MEDS ORDERED: IPRATROPIUM NEB FS 0.5 MG/2.5 ML AMPUL.NEB NEB ONE ×2 (09:00→09:30)
[2020-08-09] MEDS ORDERED: ALBUTEROL FS 2.5 MG/3 ML VIAL.NEB NEB ONE ×2 (09:00→09:30)
[2020-08-09] MEDS ORDERED: DEXAMETHASONE SOD PHOSPHATE 10 MG/ML VIAL ONE (09:10)
[2020-08-09] MEDS ORDERED: DEXAMETHASONE SOD PHOSPHATE 10 MG/ML VIAL IM ONE (09:30)
[2020-08-09] MEDS ORDERED: IPRATROPIUM/ALBUTEROL INHALER IH SCH (12:00)
== END 2020-08-09 09:53 | disposition home or self-care (01) ==
LOC: ER 08:26
DX: J45.901 Unspecified asthma with (acute) exacerbation (principal); F17.200 Nicotine dependence, unspecified, uncomplicated; Z79.899 Other long term (current) drug therapy
CPT/HCPCS: 71045; 94640 ×2; 96372; 99285; J1100

== ENCOUNTER 2020-10-15 20:28 | Emergency (ER) | payer OTHER ==
[~2020-10-15] VITALS: Ht 157.5 cm; Wt 54.4 kg
--- NOTE | 2020-10-15 20:43 | NUR ---
BIBS TO ER BED 5. AAOX4. NOT IN RESP DISTRESS, BREATHING EVEN AND UNLABORED AND SATTING 99% ON RA. AMBULATORY AND TALKING IN FULL SENTENCES. CAME IN FOR SHORTNESS OF BREATH FOR THE PAST 3 DAYS D/T RUNNING OUT OF INHALER. PT ALSO REPORTS THAT SHE HAS BEEN COUGHING FOR THE PAST SEVERAL WEEKS. PROVIDER AT BEDSIDE. AWAITING FOR ORDERS
[2020-10-15] MEDS ORDERED: ALBUTEROL FS 2.5 MG/3 ML VIAL.NEB ONE ×2 (20:53→22:37)
[2020-10-15] MEDS ORDERED: predniSONE 20 MG TABLET PO ONE (21:00)
[2020-10-15] MEDS ORDERED: ALBUTEROL FS 2.5 MG/3 ML VIAL.NEB NEB ONE (21:00)
[2020-10-15] MEDS ORDERED: IPRATROPIUM NEB FS 0.5 MG/2.5 ML AMPUL.NEB NEB ONE ×2 (21:00→22:30)
[2020-10-15] MEDS ORDERED: predniSONE 20 MG TABLET ONE (21:11)
--- NOTE | 2020-10-15 21:13 | NUR ---
NO NEED FOR IV LINE PER PROVIDER
[2020-10-15] MEDS ORDERED: ALBUTEROL FS 2.5 MG/3 ML VIAL.NEB CONTNEB ONE (22:30)
[2020-10-15] MEDS ORDERED: IPRATROPIUM NEB FS 0.5 MG/2.5 ML AMPUL.NEB ONE (22:37)
[2020-10-15] MEDS ORDERED: FLUT1DIS3 IH (23:32)
[2020-10-15] MEDS ORDERED: PRED20TA PO (23:32)
[2020-10-15] MEDS ORDERED: MONT10TA22 PO (23:32)
[2020-10-15] MEDS ORDERED: PROM118S5 PO (23:32)
--- NOTE | 2020-10-15 23:36 | NUR ---
Patient discharged to home in stable condition. Written and verbal after care instructions given. Patient verbalizes understanding of instruction. Pt ambulatory with a steady gait
[2020-10-15 23:37] VITALS: BP 113/69
== END 2020-10-15 23:38 | disposition home or self-care (01) ==
LOC: ER 20:33
DX: J45.901 Unspecified asthma with (acute) exacerbation (principal); J06.9 Acute upper respiratory infection, unspecified; Z20.822 Contact with and (suspected) exposure to COVID-19; R00.0 Tachycardia, unspecified; R94.31 Abnormal electrocardiogram [ECG] [EKG]
CPT/HCPCS: 71045; 93005; 94640 ×2; 99285; C9803; J7512; U0003

== ENCOUNTER 2020-11-04 09:38 | Emergency (ER) | payer OTHER ==
[~2020-11-04] VITALS: Ht 157.5 cm; Wt 44.9 kg
[~2020-11-04 09:38] MED LIST changes: +PRED20TA PO; +PROM118S5 PO
--- NOTE | 2020-11-04 09:45 | NUR ---
SOB, asthma since yesterday. Med refill for albuterol inhaler. Patient a/ox4, breathing even and unlabored, tachycardic. Denies chest pain or discomfort. Attached to the vehicle monitor technician.
[2020-11-04] MEDS ORDERED: predniSONE 20 MG TABLET PO ONE (10:00)
[2020-11-04] MEDS ORDERED: IPRATROPIUM NEB FS 0.5 MG/2.5 ML AMPUL.NEB NEB ONE (10:00)
[2020-11-04] MEDS ORDERED: ALBUTEROL FS 2.5 MG/3 ML VIAL.NEB CONTNEB ONE (10:00)
[2020-11-04] MEDS ORDERED: EPINEPHRINE (1:1000) 1 MG/ML AMPUL SUBCUT ONE (10:00)
[2020-11-04] MEDS ORDERED: EPINEPHRINE (1:1000) 1 MG/ML AMPUL ONE (10:07)
[2020-11-04] MEDS ORDERED: predniSONE 20 MG TABLET ONE (10:07)
[2020-11-04] MEDS ORDERED: ALBUTEROL FS 2.5 MG/3 ML VIAL.NEB ONE (10:24)
[2020-11-04] MEDS ORDERED: IPRATROPIUM NEB FS 0.5 MG/2.5 ML AMPUL.NEB ONE (10:24)
[2020-11-04] MEDS ORDERED: PRED20TA PO (10:38)
[2020-11-04] MEDS ORDERED: ALBU8.5H8 INH (10:38)
[2020-11-04] MEDS ORDERED: ALBU1.257 NEB (11:06)
[2020-11-04 11:12] VITALS: BP 100/66
--- NOTE | 2020-11-04 11:12 | NUR ---
Breathing tx done. Patient discharged to home in stable condition. Written and verbal after care instructions given. Patient verbalizes understanding of instruction.
== END 2020-11-04 11:12 | disposition home or self-care (01) ==
LOC: ER 09:38
DX: J45.901 Unspecified asthma with (acute) exacerbation (principal); F17.200 Nicotine dependence, unspecified, uncomplicated; Z79.899 Other long term (current) drug therapy
CPT/HCPCS: 93005; 94640 ×2; 96372; 99285; J0171; J7512

== ENCOUNTER 2020-12-28 05:38 | Emergency (ER) | payer OTHER ==
[~2020-12-28] VITALS: Ht 157.5 cm; Wt 45.4 kg
[~2020-12-28 05:38] MED LIST changes: +ALBU1.257 NEB; +ALBU8.5H8 INH
--- NOTE | 2020-12-28 05:52 | NUR ---
PRESENTED TO THE ER FOR C/O HARD TIME BREATHING FOR THE PAST COUPLE HOURS. DID NOT USE HER RESCUE INHALER SHE RAN OUT THEM. NO COUGH NOTES. PT HODLING O2 SAT OF 95-96% ON R/A. AMBULATORY TO BED 7. WS PLACED ON A MONITOR .
--- NOTE | 2020-12-28 05:54 | NUR ---
DR ROSA LUBIN AT BED SIDE
--- NOTE | 2020-12-28 05:55 | NUR ---
CALLED RT FOR BREATHING TX
[2020-12-28] MEDS ORDERED: IPRATROPIUM NEB FS 0.5 MG/2.5 ML AMPUL.NEB ONE (05:59)
[2020-12-28] MEDS ORDERED: ALBUTEROL FS 2.5 MG/3 ML VIAL.NEB ONE (05:59)
[2020-12-28] MEDS ORDERED: ALBUTEROL FS 2.5 MG/3 ML VIAL.NEB NEB ONE (06:00)
[2020-12-28] MEDS ORDERED: IPRATROPIUM NEB FS 0.5 MG/2.5 ML AMPUL.NEB NEB ONE (06:00)
[2020-12-28] MEDS ORDERED: predniSONE 20 MG TABLET PO ONE (06:00)
[2020-12-28 06:06] VITALS: BP 165/87
[2020-12-28] MEDS ORDERED: predniSONE 10 MG TABLET ONE (06:09)
[2020-12-28] MEDS ORDERED: ALBU1.257 NEB (06:44)
[2020-12-28] MEDS ORDERED: ALBU8.5H8 INH (06:44)
[2020-12-28] MEDS ORDERED: PRED20TA PO (06:44)
--- NOTE | 2020-12-28 07:09 | NUR ---
Patient discharged to home in stable condition. Written and verbal after care instructions given. Patient verbalizes understanding of instruction.
== END 2020-12-28 07:10 | disposition home or self-care (01) ==
LOC: ER 05:41
DX: J45.901 Unspecified asthma with (acute) exacerbation (principal); Z79.899 Other long term (current) drug therapy
CPT/HCPCS: 94640 ×2; 99284; J7512 ×2

== ENCOUNTER 2021-02-09 05:10 | Emergency (ER) | payer OTHER ==
[~2021-02-09] VITALS: Ht 157.5 cm; Wt 45.8 kg
--- NOTE | 2021-02-09 05:15 | NUR ---
PATIENT BIBS FOR SOB X 1 DAY. HX OF ASTHMA. PATIENT IS A/O X 4, RR EVEN, LABORED. PATIENT CONNECTED TO SENIOR BUSINESS ANALYST AND POX. WILL CONTINUE TO MONITOR.
--- NOTE | 2021-02-09 05:16 | NUR ---
RT AT BEDSIDE.
[2021-02-09] MEDS ORDERED: predniSONE 20 MG TABLET ONE (05:20)
[2021-02-09] MEDS ORDERED: IPRATROPIUM NEB FS 0.5 MG/2.5 ML AMPUL.NEB ONE (05:21)
[2021-02-09] MEDS ORDERED: ALBUTEROL FS 2.5 MG/3 ML VIAL.NEB ONE ×2 (05:21→07:06)
[2021-02-09] MEDS ORDERED: IPRATROPIUM NEB FS 0.5 MG/2.5 ML AMPUL.NEB NEB ONE (05:30)
[2021-02-09] MEDS ORDERED: predniSONE 20 MG TABLET PO ONE (05:30)
[2021-02-09] MEDS ORDERED: ALBUTEROL FS 2.5 MG/3 ML VIAL.NEB NEB ONE ×2 (05:30→07:30)
[2021-02-09] MEDS ORDERED: PRED20TA PO (05:40)
[2021-02-09] MEDS ORDERED: ALBU2.5V38 NEB (05:58)
[2021-02-09 08:14] VITALS: BP 101/62
--- NOTE | 2021-02-09 08:14 | NUR ---
Patient discharged to home in stable condition. Written and verbal after care instructions given. Patient verbalizes understanding of instruction.
== END 2021-02-09 08:15 | disposition home or self-care (01) ==
LOC: ER 05:12
DX: J45.909 Unspecified asthma, uncomplicated (principal); F17.200 Nicotine dependence, unspecified, uncomplicated; Z79.899 Other long term (current) drug therapy
CPT/HCPCS: 94644; 94645; 99285; J7512

== ENCOUNTER 2021-03-09 17:40 | Emergency (ER) | payer OTHER ==
[~2021-03-09] VITALS: Ht 157.5 cm; Wt 49.9 kg
[~2021-03-09 17:40] MED LIST changes: +ALBU2.5V38 NEB
[2021-03-09] MEDS ORDERED: ALBUTEROL FS 2.5 MG/3 ML VIAL.NEB CONTNEB ONE (18:00)
[2021-03-09] MEDS ORDERED: IPRATROPIUM NEB FS 0.5 MG/2.5 ML AMPUL.NEB NEB ONE ×2 (18:00→21:00)
[2021-03-09] MEDS ORDERED: Magnesium 1GM/D5W 100ML PREMIX 200 ML IV ONE ×2 (18:00→18:04)
[2021-03-09] MEDS ORDERED: IV NS 0.9% 1,000 ML IV ONE ×2 (18:00→19:30)
--- NOTE | 2021-03-09 18:00 | NUR ---
THE PATIENT BIBS FOR C/O WORSENING SOB SINCE LAST NIGHT, HX OF STHMA. ATTACHED TO THE MONITOR.
[2021-03-09] MEDS: EPINEPHRINE (1:1000) 1 MG/ML AMPUL SUBCUT ONE ×2 (18:02→18:26)
[2021-03-09] MEDS: methylPREDNISolone SOD SUCC 125 MG/2ML VIAL IV ONE ×2 (18:02→18:26)
[2021-03-09] MEDS ORDERED: EPINEPHRINE (1:1000) 1 MG/ML AMPUL ONE (18:03)
[2021-03-09] MEDS ORDERED: ALBUTEROL FS 2.5 MG/3 ML VIAL.NEB ONE ×2 (18:03→20:53)
[2021-03-09] MEDS ORDERED: IPRATROPIUM NEB FS 0.5 MG/2.5 ML AMPUL.NEB ONE ×2 (18:03→20:53)
[2021-03-09] MEDS ORDERED: methylPREDNISolone SOD SUCC 125 MG/2ML VIAL ONE (18:04)
--- NOTE | 2021-03-09 19:30 | NUR ---
PATIENT IN BED SLEEPING, EASY TO AROUSE. PATIENT VSS, CONNECTED TP CADIAC AND POX MONITOR. PATIENT IN NO ACUTE DISTRESS.
[2021-03-09] MEDS ORDERED: ALBUTEROL FS 2.5 MG/3 ML VIAL.NEB NEB ONE (21:00)
[2021-03-09] MEDS ORDERED: FLUT1DIS3 INH (21:12)
[2021-03-09] MEDS ORDERED: ALBU8.5H8 INH (21:12)
[2021-03-09] MEDS ORDERED: PRED50TA PO (21:13)
[2021-03-09 22:23] VITALS: BP 112/61
== END 2021-03-09 22:24 | disposition home or self-care (01) ==
LOC: ER 17:44
DX: J45.901 Unspecified asthma with (acute) exacerbation (principal); F17.200 Nicotine dependence, unspecified, uncomplicated; Z79.899 Other long term (current) drug therapy
CPT/HCPCS: 71045; 93005; 94644; 94645; 96365; 96366; 96372; 96375; 99291; J0171; J2930; J3475

== ENCOUNTER 2021-04-18 13:14 | Emergency (ER) | payer OTHER ==
[~2021-04-18] VITALS: Ht 157.5 cm; Wt 51.7 kg
[~2021-04-18 13:14] MED LIST changes: +FLUT1DIS3 INH; +PRED50TA PO
--- NOTE | 2021-04-18 13:33 | NUR ---
The patient presented to ER for being constipated x2days also have non-radiating pain in chest /. Rates chest pain /. In room air and denies SOB. Respiration regular and unlabored. Attached to the monitor. Will continue to monitor the patient.
[2021-04-18] MEDS ORDERED: IPRATROPIUM NEB FS 0.5 MG/2.5 ML AMPUL.NEB ONE (14:07)
[2021-04-18] MEDS ORDERED: ALBUTEROL FS 2.5 MG/3 ML VIAL.NEB ONE (14:07)
--- NOTE | 2021-04-18 14:15 | NUR ---
RT AT BEDSIDE FOR BREATHING TX.
--- NOTE | 2021-04-18 14:19 | NUR ---
THE PATIENT DENIES HAVING CHEST PAIN
[2021-04-18] MEDS ORDERED: IPRATROPIUM NEB FS 0.5 MG/2.5 ML AMPUL.NEB NEB ONE (14:30)
[2021-04-18] MEDS ORDERED: ALBUTEROL FS 2.5 MG/3 ML VIAL.NEB CONTNEB ONE (14:30)
[2021-04-18] MEDS ORDERED: ALBU8.5H8 INH (15:45)
[2021-04-18 15:57] VITALS: BP 116/82
--- NOTE | 2021-04-18 15:57 | NUR ---
Patient discharged to home in stable condition. Written and verbal after care instructions given. Patient verbalizes understanding of instruction.
== END 2021-04-18 15:59 | disposition home or self-care (01) ==
LOC: ER 13:18
DX: R06.02 Shortness of breath (principal); K59.00 Constipation, unspecified; F19.10 Other psychoactive substance abuse, uncomplicated; J45.909 Unspecified asthma, uncomplicated; F17.200 Nicotine dependence, unspecified, uncomplicated; Z79.899 Other long term (current) drug therapy
CPT/HCPCS: 71045-TC

== ENCOUNTER 2021-04-30 00:33 | Emergency (ER) | payer OTHER ==
[~2021-04-30] VITALS: Ht 157.5 cm; Wt 52.2 kg
--- NOTE | 2021-04-30 00:48 | NUR ---
PT AAOX4. BIBSELF C/O SOB X3 DAYS. REQUESTING BREATHING TREAMTNET. STATED HER PRO AIR DOES NOT HELP MUCH. PLACED ON MONITOR AND PULSE OX. AWAITING ER MD FOR EVAL.
[2021-04-30] MEDS ORDERED: methylPREDNISolone SOD SUCC 125 MG/2ML VIAL ONE (00:57)
[2021-04-30] MEDS ORDERED: methylPREDNISolone SOD SUCC 125 MG/2ML VIAL IM ONE ×2 (01:00)
[2021-04-30] MEDS ORDERED: ALBUTEROL FS 2.5 MG/3 ML VIAL.NEB NEB ONE (01:00)
[2021-04-30] MEDS ORDERED: IPRATROPIUM NEB FS 0.5 MG/2.5 ML AMPUL.NEB NEB ONE ×2 (01:00→03:00)
[2021-04-30] MEDS ORDERED: IPRATROPIUM NEB FS 0.5 MG/2.5 ML AMPUL.NEB ONE ×2 (01:02→03:11)
[2021-04-30] MEDS ORDERED: ALBUTEROL FS 2.5 MG/3 ML VIAL.NEB ONE ×2 (01:02→03:11)
--- NOTE | 2021-04-30 01:56 | NUR ---
FINISHED BREATHING TREATMENT, STATED SHE FEELS WELL.
[2021-04-30 02:39] LABS: BASOPHILS # (AUTO) 0.1 K/uL (0.0-0.2); BASOPHILS % (AUTO) 0.7 % (0.0-2.0); EOSINOPHILS % (AUTO) 8.7 % (0.0-6.0); HEMATOCRIT 38 % (33-45); HEMOGLOBIN 12.7 g/dL (11.5-14.8); LYMPHOCYTES # (AUTO) 2.2 K/uL (0.8-4.8); LYMPHOCYTES % (AUTO) 15.4 % (20.0-44.0); MEAN CORPUSCULAR HGB CONC 33 g/dl (31.0-36.0); MEAN CORPUSCULAR VOLUME 93 fL (82-100); MONOCYTES % (AUTO) 6.8 % (2.0-12.0); NEUTROPHILS # (AUTO) 9.9 K/uL (1.8-8.9); NEUTROPHILS % (AUTO) 68.4 % (43.0-81.0); PLATELET COUNT (AUTO) 356 K/uL (150-450); RED BLOOD CELL COUNT(AUTO) 4.13 MIL/uL (4.0-5.2); WHITE BLOOD COUNT (AUTO) 14.6 K/uL (4.3-11.0)
[2021-04-30 02:41] LABS: CALCIUM, SERUM 8.8 mg/dL (8.5-10.1); CARBON DIOXIDE 26 mmol/L (21-32); CHLORIDE 106 mmol/L (98-107); CREATININE 0.8 mg/dL (0.6-1.3); GLUCOSE 144 mg/dL (74-106); POTASSIUM 4.1 mmol/L (3.5-5.1); SODIUM SERUM 141 mmol/L (136-145); UREA NITROGEN, BLOOD 11 mg/dL (7-18)
[2021-04-30] MEDS ORDERED: ALBUTEROL FS 2.5 MG/3 ML VIAL.NEB CONTNEB ONE (03:00)
--- NOTE | 2021-04-30 03:09 | NUR ---
CALLED RT FOR BREATHING TREATMENT
[2021-04-30] MEDS ORDERED: PRED20TA PO (04:22)
[2021-04-30] MEDS ORDERED: ALBU8.5H8 INH (04:22)
--- NOTE | 2021-04-30 04:28 | NUR ---
Patient discharged to home in stable condition. Written and verbal after care instructions given. Patient verbalizes understanding of instruction.
[2021-04-30 04:40] VITALS: BP 119/74
== END 2021-04-30 04:40 | disposition home or self-care (01) ==
LOC: ER 00:39
DX: J45.901 Unspecified asthma with (acute) exacerbation (principal); R00.0 Tachycardia, unspecified; Z20.822 Contact with and (suspected) exposure to COVID-19
CPT/HCPCS: 36415; 71045; 80048; 83880; 84484; 85025; 87426; 93005; 94644; 96372; 99285; C9803; J2930

== ENCOUNTER 2021-06-12 08:44 | Emergency (ER) | payer OTHER ==
[~2021-06-12] VITALS: Ht 157.5 cm; Wt 50.8 kg
--- NOTE | 2021-06-12 08:50 | NUR ---
CALLED RT FOR BREATHING TX.
[2021-06-12] MEDS ORDERED: IPRATROPIUM NEB FS 0.5 MG/2.5 ML AMPUL.NEB ONE (08:53)
[2021-06-12] MEDS ORDERED: ALBUTEROL FS 2.5 MG/3 ML VIAL.NEB ONE (08:53)
--- NOTE | 2021-06-12 08:56 | NUR ---
TO ER BED 6, C/O SOB SINCE LAST NIGHT. ALBUTEROL NOT HELPING. HX OF ASTHMA, AAOX3, CONNECTED TO MONITOR, AT BEDSIDE
[2021-06-12] MEDS ORDERED: methylPREDNISolone SOD SUCC 125 MG/2ML VIAL ONE (09:00)
[2021-06-12] MEDS ORDERED: ALBUTEROL FS 2.5 MG/3 ML VIAL.NEB NEB ONE (09:00)
[2021-06-12] MEDS ORDERED: IPRATROPIUM NEB FS 0.5 MG/2.5 ML AMPUL.NEB NEB ONE (09:00)
[2021-06-12] MEDS ORDERED: Magnesium 1GM/D5W 100ML PREMIX 200 ML IV ONE (09:00)
[2021-06-12] MEDS ORDERED: Magnesium 1GM/D5W 100ML PREMIX 100 ML IV ONE ×2 (09:00→09:13)
[2021-06-12] MEDS ORDERED: methylPREDNISolone SOD SUCC 125 MG/2ML VIAL IV ONE (09:00)
--- NOTE | 2021-06-12 09:56 | NUR ---
IV removed. Catheter intact and site benign. Pressure and 4x4 applied to site. No bleeding noted.Patient discharged to home in stable condition. Written and verbal after care instructions given. Patient verbalizes understanding of instruction.
[2021-06-12] MEDS ORDERED: ALBU8.5H8 INH (10:03)
[2021-06-12] MEDS ORDERED: PRED50TA PO (10:03)
[2021-06-12 10:10] VITALS: BP 114/82
== END 2021-06-12 10:10 | disposition left against medical advice (07) ==
LOC: ER 08:44
DX: R06.03 Acute respiratory distress (principal); J45.901 Unspecified asthma with (acute) exacerbation; R09.02 Hypoxemia; F17.200 Nicotine dependence, unspecified, uncomplicated; Z79.899 Other long term (current) drug therapy
CPT/HCPCS: 94644; 96365; 96366; 96375; 99291; J2930; J3475 ×2

== ENCOUNTER 2022-04-18 07:43 | Emergency (ER) | payer OTHER ==
[~2022-04-18] VITALS: Ht 157.5 cm; Wt 49.9 kg
[2022-04-18] MEDS ORDERED: ALBUTEROL FS 2.5 MG/3 ML VIAL.NEB ONE ×2 (07:52→10:07)
[2022-04-18] MEDS ORDERED: IPRATROPIUM NEB FS 0.5 MG/2.5 ML AMPUL.NEB ONE ×2 (07:53→10:08)
[2022-04-18] MEDS ORDERED: predniSONE 20 MG TABLET ONE (07:59)
[2022-04-18] MEDS ORDERED: predniSONE 20 MG TABLET PO ONE (08:00)
[2022-04-18] MEDS ORDERED: ALBUTEROL FS 2.5 MG/3 ML VIAL.NEB CONTNEB ONE ×2 (08:00→10:00)
[2022-04-18] MEDS ORDERED: IPRATROPIUM NEB FS 0.5 MG/2.5 ML AMPUL.NEB NEB ONE ×2 (08:00→10:00)
--- NOTE | 2022-04-18 10:02 | NUR ---
RT CALLED FOR 2ND BREATHING TX
--- NOTE | 2022-04-18 11:00 | NUR ---
BIBS C/O "ASTHMA ATTACK" SINCE LAST NIGHT. PLACED ON BED, AAOX4, UNLABORED BREATHING SATURATING AT 99%RA
[2022-04-18] MEDS ORDERED: ALBU8.5H8 INH (11:10)
[2022-04-18] MEDS ORDERED: PRED50TA PO (11:10)
--- NOTE | 2022-04-18 11:56 | NUR ---
Patient discharged to home in stable condition. Written and verbal after care instructions given. Patient verbalizes understanding of instruction.
[2022-04-18 12:17] VITALS: BP 99/70
== END 2022-04-18 11:56 | disposition home or self-care (01) ==
LOC: ER 07:45
DX: J45.901 Unspecified asthma with (acute) exacerbation (principal); J45.909 Unspecified asthma, uncomplicated; F17.200 Nicotine dependence, unspecified, uncomplicated; Z79.51 Long term (current) use of inhaled steroids; Z79.899 Other long term (current) drug therapy
CPT/HCPCS: 99285; 94799; 94640; 94644; J7512

== ENCOUNTER 2023-12-15 16:48 | Emergency (ER) | payer OTHER ==
[~2023-12-15] VITALS: Ht 157.5 cm; Wt 45.4 kg
[2023-12-15 17:17] VITALS: BP 119/74; TEMP 98.1; O2SAT 97
[2023-12-15] MEDS ORDERED: FLUT16SP16 BNOSTRILS (18:07)
[2023-12-15] MEDS ORDERED: FLUT100D INH (18:07)
[2023-12-15] MEDS ORDERED: ALBU18HF2 INH (18:07)
[2023-12-15] MEDS ORDERED: KETO10TA2 PO (18:07)
[2023-12-15] MEDS ORDERED: FLUC150T PO (18:07)
[2023-12-15] MEDS ORDERED: BENZ-13 PO (18:07)
[2023-12-15] MEDS ORDERED: SUMA100T PO (18:07)
[2023-12-15] MEDS ORDERED: GUAI1TBM19 PO (18:07)
[2023-12-15] MEDS ORDERED: FLUCONAZOLE (100 MG) 100 MG TABLET ONE (18:24)
[2023-12-15] MEDS: FLUCONAZOLE (100 MG) 100 MG TABLET PO ONE (18:30)
[2023-12-15] MEDS ORDERED: PROM6.256 PO (18:31)
== END 2023-12-15 19:06 | disposition home or self-care (01) ==
LOC: ER 16:55
DX: J45.901 Unspecified asthma with (acute) exacerbation (principal); J06.9 Acute upper respiratory infection, unspecified; N76.0 Acute vaginitis